=== PATIENT | male | born 1950 | race Two or more races ===

== ENCOUNTER → 2017-06-14 | Outpatient (CLI) | payer MEDICARE ==
[~2017-06-14] VITALS: Ht 152.4 cm; Wt 80.3 kg
[~2017-06-14] MED LIST: AMLO1CAP8 PO; AMLO5TAB2 PO; ASPI-252 PO; ASPI-482 PO; BUPIVACAINE 0.5% 50 ML VIAL. INJ ONE; CIPR500T PO; CLOP75TA PO; FINA5TAB PO; FINA5TAB4 PO; FLAX1CAP6 PO; IOHEXOL 300 MG/ML 10ML VIAL. INT ART ONE; LISI-334 PO; LISI10TA2 PO; LISI1TAB7 PO; METO-269 PO; NITR0.4T22 SL; SOTA80TA20 PO; SOTA80TA48 PO; TAMS0.4C2 PO; TAMS0.4C97 PO; WARF2.5T71 PO; WARF3TAB54 PO; methylPREDNISolone ACETATE 80 MG/ML VIAL. IM ONE
[2017-06-14 09:59] VITALS: BP 124/75
--- NOTE | 2017-06-14 11:28 | RAD ---
Fluoroscopically guided right hip joint injection, 06/14/2017: History: Osteoarthritis Under local anesthesia, aseptic conditions and fluoroscopic guidance a 22-gauge spinal needle was passed into the right hip joint via an anterior approach. A small amount of iodinated contrast material was injected to confirm intra-articular positioning following which 80 mg of Depo-Medrol mixed with 4 cc of 0.5% Sensorcaine was injected into the joint as requested. The needle was then removed and hemostasis obtained. A single fluoroscopic spot image was recorded. 0.8 minutes of fluoroscopy time is utilized. The patient tolerated the procedure well and left the department in good condition.
== END | disposition home or self-care (01) ==
LOC: RAD 09:29
PROVIDERS: ATTEND Nurse Practitioner Gerontology
DX: M16.11 Unilateral primary osteoarthritis, right hip (principal); G89.29 Other chronic pain
CPT/HCPCS: 20605; 77002

== ENCOUNTER → 2018-04-07 | Outpatient (CLI) | payer MEDICARE ==
[2018-04-07] MEDS: IOHEXOL 300 MG/ML 100ML VIAL. IV (10:30)
[2018-04-07] MEDS: IOHEXOL 240 MG/ML 50ML VIAL. PO (10:30)
== END | disposition home or self-care (01) ==
LOC: CT 09:45
DX: K57.90 Diverticulosis of intestine, part unspecified, without perforation or abscess without bleeding (principal); M16.11 Unilateral primary osteoarthritis, right hip; N40.0 Benign prostatic hyperplasia without lower urinary tract symptoms; I11.0 Hypertensive heart disease with heart failure; I50.9 Heart failure, unspecified; K21.9 Gastro-esophageal reflux disease without esophagitis; K57.30 Diverticulosis of large intestine without perforation or abscess without bleeding; K40.90 Unilateral inguinal hernia, without obstruction or gangrene, not specified as recurrent; Z87.891 Personal history of nicotine dependence
CPT/HCPCS: 74177; Q9966; Q9967

== ENCOUNTER → 2018-10-28 | Outpatient (CLI) | payer MEDICARE ==
[2017-06-14 09:59] VITALS: BP 124/75
[~2018-10-28] MED LIST changes: -AMLO5TAB2 PO; +AMLO5TAB7 PO; -BUPIVACAINE 0.5% 50 ML VIAL. INJ ONE; -IOHEXOL 300 MG/ML 10ML VIAL. INT ART ONE; +REGADENOSON 0.4 MG/5 ML DISP.SYRIN. IV ONE; -methylPREDNISolone ACETATE 80 MG/ML VIAL. IM ONE
--- NOTE | 2018-10-28 10:21 | CARD ---
MR#: [id number] Date of Study: 10/28/2018 Ordering Physician: CHRISTY BANKS, Referring Physician: CHRISTY BANKS Tech: Jennie Marino ISAAK APPROVED REPORT EXAM: Two-dimensional and M-mode echocardiogram with Doppler and color Doppler. Other Information Quality : AverageHR: 70bpm Rhythm : Other INDICATION Dyspnea 2D DIMENSIONS RVDd2.7 (2.9-3.5cm)Left Atrium(2D)3.9 (1.6-4.0cm) IVSd1.2 (0.7-1.1cm)Aortic Root(2D)3.6 (2.0-3.7cm) LVDd5.8 (3.9-5.9cm)LVOT Diameter2.5 (1.8-2.4cm) PWd1.2 (0.7-1.1cm)LVDs4.8 (2.5-4.0cm) FS (%) 16.7 %SV56.8 ml LVEF(%)34.5 (>50%) M-Mode DIMENSIONS Left Atrium(MM)4.13 (2.5-4.0cm)Aortic Root3.81 (2.2-3.7cm) Aortic Valve AoV Peak Al.104.8cm/sAoV VTI19.5cm AO Peak GR.4.4mmHgLVOT Peak Al.46.6cm/s AO Mean GR.3mmHgAVA (VMAX)2.19cm2 CONNOR (VTI)2.20cm2 Mitral Valve MV E Kiypnagy284.5cm/sMV DECEL [id number] MV A Rlqwmrlu20.4cm/sE/A Ratio4.2 Pulmonary Valve PV Peak Xuazufhz90.0cm/s Tricuspid Valve TR P. Atlfjdab659rp/sRAP RCGJHZMW3cwYc TR Peak Gr.56ggYkJPZF02eaGz LEFT VENTRICLE The left ventricle is normal size. There is mild concentric left ventricular hypertrophy. The left ve ntricular systolic function is moderately impaired. The Ejection Fraction is 30%. There is global hyp okinesis of the left ventricle. RIGHT VENTRICLE The right ventricle is normal size. There is normal right ventricular wall thickness. Systolic functi on is mildly to moderately reduced. ATRIA The left atrium is borderline dilated. The right atrium size is normal. The interatrial septum is int act with no evidence for an atrial septal defect or patent foramen ovale as noted on 2-D or Doppler i maging. AORTIC VALVE The aortic valve is calcified but opens well. The aortic valve is trileaflet. Doppler and Color Flow revealed no significant aortic regurgitation. There is no significant aortic valvular stenosis. MITRAL VALVE The mitral valve is normal in structure and function. There is no evidence of mitral valve prolapse. There is no mitral valve stenosis. Doppler and Color-flow revealed mild mitral regurgitation. TRICUSPID VALVE The tricuspid valve is normal in structure and function. Doppler and Color Flow revealed trace tricus pid regurgitation. The PA pressure was estimated at 27 mmHg. There is no tricuspid valve prolapse or vegetation. PULMONIC VALVE The pulmonary valve is normal in structure and function. Doppler and Color Flow revealed trace pulmon ic valvular regurgitation. There is no pulmonic valvular stenosis. GREAT VESSELS The aortic root is borderline enlarged. The ascending aorta is normal in size. The IVC is normal in s ize and collapses >50% with inspiration. PERICARDIAL EFFUSION There is no evidence of significant pericardial effusion. Critical Notification Critical Value: No <Conclusion> The left ventricular systolic function is moderately impaired. The Ejection Fraction is 30%. Mild mitral regurgitation. Trace tricuspid regurgitation. The PA pressure was estimated at 27 mmHg. There is no evidence of significant pericardial effusion. Signed by : Christy Banks, Electronically Approved : 10/28/2018 10:19:33
--- NOTE | 2018-10-28 12:43 | RAD ---
MR#: [id number] Date of Study: 10/28/2018 Ordering Physician: CHRISTY ZAMAN Referring Physician: HEATHER SCHERER Tech: RT Stephany Deleon) (N) APPROVED REPORT Test Type: Pharmacological Stress Nurse/Tech: Deepa Vincent R.N. Test Indications: dyspnea Cardiac History: htn, PPM Medications: See Electronic Medical Record Medical History: See Electronic Medical Record Resting ECG: Afib w/ v-paced beats Resting Heart Rate: 67 bpm Resting Blood Pressure: 155/93mmHg Pretest Chest Pain: No chest pain Nurse/Tech Notes irregular rhythm, lungs CTA Consent: The procedure was explained to the patient in lay terms. Informed consent was witnessed. Glen eout was entered into [email or web address]. History and Stress Test performed by RT Stephany Coppola) (N) Pharm. Details Pharmacologic stress testing was performed using 0.4mg per 5ml of regadenoson given intravenously ove r 7-10 seconds. Stress Symptoms slight SOB, h/a POST EXERCISE Reason for Termination: Infusion complete Max HR: 100 bpm Max Blood Pressure: 155/69mmHg Blood Pressure response to exercise: Normal blood pressure response during stress. Heart Rate response to exercise: wnl Chest Pain: No. Arrhythmia: Yes. not new- pt started in Afib ST Change: No. INTERPRETATION Stress EKG Conclusion: No stress induced EKG changes. Imaging Protocol IMAGE PROTOCOL: Rest Tc-99m/stress Tc-99m 1 day Rest: Stress: Viability: Radiopharm.Tc99m BanqpxwihLz83a Sestamibi Hdne96tYg 33mCi Duration 13min. 13min. Img Date 10/28/2018 10/28/2018 Inj-Img Tiix49rip. 60min. Rest Admin Site:IV - Right AntecubitalAdministrator:RT Anna CoppolaR)(N) Stress Admin Site: IV - Right AntecubitalAdministrator: TALISHA Gutierrez STRESS DATA End Diast. Vol.97.0mlLVEDV index BSA49.0ml End Syst. Vol.40.0mlLVESV index BSA20.0ml Myocardial Igdo978.0gEject. Cgynkabn43.0% Stress Scores Regional WT1.00Summed WT11.00 Regional WM0.00Summed WM4.00 LV Perfusion There is a basal to mid inferior wall FIXED defect consistent with prior infarct. No ischemia noted. LV Perf. Quant 17 Seg. SSS4.00 17 Seg. SRS1.00 17 Seg. SDS3.00 Stress Defect Extent (% LAD)0.00Rest Defect Extent (% LAD)0.00Rev. Defect Extent (% LAD)0.00 Stress Defect Extent (% LCX) 0.00Rest Defect Extent (% LCX)0.00Rev. Defect Extent (% LCX)0.00 Stress Defect Extent (% RCA)41.10Rest Defect Extent (% RCA)8.90Rev. Defect Extent (% RCA)31.10 Stress Defect Extent (% JONG)8.50Rest Defect Extent (% JONG)1.70Rev. Defect Extent (% JONG)6.10 Other Information Quality:Good Risk Assessment: Low Risk Conclusion 1. No evidence of stress induced EKG changes. 2. FIXED inferior wall defect. Probable infarct versus artifact. 3. Normal EF at > 55% 4. Low risk study Signed by : Enrique Cruz, Electronically Approved : 10/28/2018 12:41:35
== END | disposition home or self-care (01) ==
LOC: ECHO 07:49
PROVIDERS: ATTEND Internal Medicine Cardiovascular Disease
DX: I34.0 Nonrheumatic mitral (valve) insufficiency (principal); I51.7 Cardiomegaly
CPT/HCPCS: 78452; 93017; 93306; 96374; A9500; J2785

== ENCOUNTER → 2018-11-25 | Outpatient (CLI) | payer MEDICARE, OTHER ==
[~2018-11-25] VITALS: Ht 167.6 cm; Wt 87.1 kg
[2018-11-25] VITALS (8 sets, daily range): BP systolic 116–142; BP diastolic 77–91
[~2018-11-25] MED LIST changes: +AMLO5TAB10 PO; -AMLO5TAB7 PO; +HEPARIN for IV BOLUS 10,000 UNIT/10 ML VIAL. IART ONE; +HEPARIN for IV BOLUS 10,000 UNIT/10 ML VIAL. ONE; +IODIXANOL 320 MG/ML 100 ML VIAL. IART ONE; +IODIXANOL 320 MG/ML 100 ML VIAL. ONE; +IV 1/2 NORMAL SALINE 1,000 ML IV SCH; +LIDOCAINE 1% PF 2 ML VIAL. INJ ONE; +LIDOCAINE 1% PF 2 ML VIAL. ONE; +LOSA-73 PO; +MIDAZOLAM HCL/PF 2 MG/2 ML VIAL. IV ONE; +MIDAZOLAM HCL/PF 2 MG/2 ML VIAL. ONE; +NITROGLYCERIN 200 MCG/2 ML SYRINGE FOR CATH/VASC LAB. IART ONE; +NITROGLYCERIN 200 MCG/2 ML SYRINGE FOR CATH/VASC LAB. ONE; +NITROGLYCERIN SUBLINGUAL 0.4 MG BOTTLE OF 25. SL PRN; -REGADENOSON 0.4 MG/5 ML DISP.SYRIN. IV ONE; +VERAPAMIL 5 MG/2 ML VIAL. IART ONE; +VERAPAMIL 5 MG/2 ML VIAL. ONE; +WARF-78 PO; +WARF4TAB68 PO; +fentaNYL PF VIAL 100 MCG/2 ML VIAL IV ONE; +fentaNYL PF VIAL 100 MCG/2 ML VIAL ONE
[2018-11-25 07:13] LABS: HEMATOCRIT 42.1 % (39.0-53.0); HEMOGLOBIN 14.2 g/dL (13.0-17.5); RED BLOOD COUNT 4.66 x10^6/uL (4.30-5.70); RED CELL DISTRIBUTION WIDTH 13.2 % (11.5-14.5); WHITE BLOOD COUNT 9.3 x10^3/uL (4.0-11.0)
[2018-11-25 07:27] LABS: CREATININE 1.1 mg/dL (0.7-1.3); GFR 66.2; POTASSIUM 3.6 mmol/L (3.5-5.1)
--- NOTE | 2018-11-25 09:16 | PDOC ---
MODERATE SEDATION ASSESSMENT RISKS/ALTERNATIVES Risks/Alternatives Risks and alternatives of this type of sedation and procedure discussed with: RISK/ALTERNATIVES: Patient H & P ON CHART H & P H & P on chart and reviewed for co-morbid conditions and appropriate labs. H&P ON CHART: Yes STATUS PREG STATUS ASSESSED: N/A MEDS/ALLERGIES REVIEWED Meds/Allergies Reviewed Medications and Allergies including time and route of recently administered narcotics and sedatives. MEDS/ALLERGIES REVIEWED: Yes ASA RATING ASA RATING: II AIRWAY ASSESSMENT Airway Assessment Airway patency, oral function limitations, presence of caps, crowns, dentures, partials, and ability to extend neck assessed. AIRWAY ASSESSMENT: Yes MALLAMPATI SCORE MALLAMPATI SCORE: II PRE-SEDATION ASSESSMENT PRE-SEDATION ASSESSMENT: Yes CHRISTY ZAMAN MD Nov 25, 2018 09:16
--- NOTE | 2018-11-25 09:24 | CARD ---
MR#: [id number] Date of Study: 11/25/2018 Ordering Physician: CHRISTY ZAMAN, Referring Physician: CHRISTY ZAMAN Tech: SUZIE SHAH RTR APPROVED REPORT Technologist: SUZIE SHAH RTR Nurse: Maria M Rios RN Procedure(s) performed: Left heart catheterization, selective coronary angiography and left ventricul ography via right transradial approach Moderate sedation: 45 mins INDICATION The indication(s) include : Cardiomyopathy. [facility] Clinical Frailty Scale [facility] Clinical Frailty Scale: Mildly Frail Heart Failure Heart Failure: Yes If Yes, Newly Diagnosed: No If Yes, HF Type: Systolic If Yes, NYHA Class: Class II PROCEDURE NARRATIVE After explaining the risks, benefits and alternative options, informed consent was obtained from joan ent. Patient was brought to the cardiac Sql Data Architect and right wrist was prepped and draped in the usual fashion after confirming a positive modified Clint's test. Arterial access was obtained in the [facility] t radial artery and a 6 Swiss sheath was inserted. 6 Swiss José Luis catheter was used to perform sylwia ective angiography right coronary artery, LVEDP and transaortic gradient measurement and also left ve ntriculography. After initial unsuccessful attempts at engaging the left main coronary artery with t he 6 Swiss José Luis catheter and 5 Swiss JL 3.5 catheter, this was successfully engaged with a 5 Fren ch Jean Pierre catheter and selective angiography was performed. Patient tolerated the procedure well. Hem ostasis was achieved using TR band. There were no immediate complications. The following findings w ere noted. FINDINGS 1. Hemodynamics: Left ventricular end-diastolic pressure of 17 mmHg. No pullback gradient across th e aortic valve. 2. Left ventriculography: Moderate to severe left ventricle systolic dysfunction with ejection fract ion estimated at 25-30%. No significant mitral regurgitation seen. 3. Coronary angiography: a. The left main coronary artery arose from the left sinus of Valsalva, gave rise to the left anteri or descending and left circumflex arteries and did not show any significant stenosis. b. The left anterior descending artery showed 60-70% stenosis involving the midsegment of a small-ca liber diagonal branch. No other lesions were noted. c. The left circumflex artery did not show any significant stenosis. d. The right coronary artery was a dominant vessel arising from the right sinus of Valsalva that ross wed 90% stenosis in the proximal segment followed by 100% chronic total occlusion in the midsegment. The distal segment and PDA/PLV reconstitute via ofpp-gr-unozq collaterals. Conclusion 1. 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 Moderate to severe left ventricle systolic dysfunction with ejection fraction estimated 25-30% Recommendations Optimization of medical therapy for nonischemic cardiomyopathy Repeat 2-D echo in 3 months to evaluate the need for upgrading patient's pacemaker to AICD for primar y prevention of sudden cardiac . Signed by : Christy Zaman, Electronically Approved : 11/25/2018 09:23:19
--- NOTE | 2018-11-25 11:51 | NUR ---
Discharge Note: MARTIN SHEPARD Discharge instructions and discharge home medications reviewed with Patient and a copy given. All questions have been answered and understanding verbalized. The following instructions and handouts were given: education was given to patient regarding moderate sedation, radial site care, and TR band site care. Pt was also directed to continue home medications as directed. Pt verbalized understand. Discontinued lines and drains: peripheral line was discontinued with no complications. Catheter tip was intact. Patient discharged to home with self care via ambulation. Pt was accompanied by multiple family members.
== END | disposition home or self-care (01) ==
LOC: CCL 06:21
PROVIDERS: ATTEND Internal Medicine Cardiovascular Disease
DX: I25.10 Atherosclerotic heart disease of native coronary artery without angina pectoris (principal); I25.82 Chronic total occlusion of coronary artery; I49.5 Sick sinus syndrome; I42.0 Dilated cardiomyopathy; I48.2 Chronic atrial fibrillation; Z79.899 Other long term (current) drug therapy; I11.0 Hypertensive heart disease with heart failure; I50.20 Unspecified systolic (congestive) heart failure; N40.0 Benign prostatic hyperplasia without lower urinary tract symptoms; M16.11 Unilateral primary osteoarthritis, right hip; Z95.0 Presence of cardiac pacemaker; Z98.890 Other specified postprocedural states; Z82.49 Family history of ischemic heart disease and other diseases of the circulatory system; Z87.891 Personal history of nicotine dependence
CPT/HCPCS: 36415; 80048; 85027; 85610; 93458; 99152; 99153; C1769; C1892; J1644; J2250; J3010; J3490; Q9967

== ENCOUNTER → 2019-03-21 | Outpatient (CLI) | payer MEDICARE, OTHER ==
[2018-11-25 11:00] VITALS: BP 121/81
[~2019-03-21] MED LIST changes: -HEPARIN for IV BOLUS 10,000 UNIT/10 ML VIAL. IART ONE; -HEPARIN for IV BOLUS 10,000 UNIT/10 ML VIAL. ONE; -IODIXANOL 320 MG/ML 100 ML VIAL. IART ONE; -IODIXANOL 320 MG/ML 100 ML VIAL. ONE; -IV 1/2 NORMAL SALINE 1,000 ML IV SCH; -LIDOCAINE 1% PF 2 ML VIAL. INJ ONE; -LIDOCAINE 1% PF 2 ML VIAL. ONE; -MIDAZOLAM HCL/PF 2 MG/2 ML VIAL. IV ONE; -MIDAZOLAM HCL/PF 2 MG/2 ML VIAL. ONE; -NITROGLYCERIN 200 MCG/2 ML SYRINGE FOR CATH/VASC LAB. IART ONE; -NITROGLYCERIN 200 MCG/2 ML SYRINGE FOR CATH/VASC LAB. ONE; -NITROGLYCERIN SUBLINGUAL 0.4 MG BOTTLE OF 25. SL PRN; -VERAPAMIL 5 MG/2 ML VIAL. IART ONE; -VERAPAMIL 5 MG/2 ML VIAL. ONE; -fentaNYL PF VIAL 100 MCG/2 ML VIAL IV ONE; -fentaNYL PF VIAL 100 MCG/2 ML VIAL ONE
--- NOTE | 2019-03-21 09:42 | CARD ---
MR#: [id number] Date of Study: 03/21/2019 Ordering Physician: CHRISTY BANKS, Referring Physician: CHRISTY BANKS Tech: Jennie Marino RDCS APPROVED REPORT EXAM: Two-dimensional and M-mode echocardiogram with Doppler and color Doppler. Other Information Quality : AverageHR: 107bpm Rhythm : TachycardiaTechnically limited study due to heart rate. INDICATION Congestive Heart Failure 2D DIMENSIONS RVDd3.0 (2.9-3.5cm)Left Atrium(2D)4.0 (1.6-4.0cm) IVSd1.0 (0.7-1.1cm)Aortic Root(2D)3.5 (2.0-3.7cm) LVDd5.7 (3.9-5.9cm)LVOT Diameter2.5 (1.8-2.4cm) PWd1.0 (0.7-1.1cm)LVDs4.4 (2.5-4.0cm) FS (%) 22.7 %SV72.2 ml LVEF(%)40.0 (>50%) M-Mode DIMENSIONS Left Atrium(MM)4.10 (2.5-4.0cm)Aortic Root3.44 (2.2-3.7cm) Aortic Valve AoV Peak La.128.2cm/sAoV VTI22.3cm AO Peak GR.6.6mmHgLVOT Peak Al.106.4cm/s AO Mean GR.4mmHgAVA (VMAX)3.94cm2 CONNOR (VTI)3.90cm2 Mitral Valve MV E Jmqxoldl159.2cm/sMV DECEL THBJ927hi MV A Qccgcwnb59.8cm/sE/A Ratio3.2 Pulmonary Valve PV Peak Mfbttlcg768.8cm/s Tricuspid Valve TR P. Wummwprm622av/sRAP AURCTOPD3gbZf TR Peak Gr.24fbPuRPDF08wrXb LEFT VENTRICLE The left ventricle is normal size. There is normal left ventricular wall thickness. Left ventricle sy stolic function is moderately impaired. The Ejection Fraction is 35-40%. There is global hypokinesis of the left ventricle. RIGHT VENTRICLE The right ventricle is normal size. There is normal right ventricular wall thickness. The right ventr icular systolic function is normal. ATRIA The left atrium is borderline dilated. The right atrium size is normal. The interatrial septum is int act with no evidence for an atrial septal defect or patent foramen ovale as noted on 2-D or Doppler i maging. AORTIC VALVE The aortic valve is normal in structure and function. The aortic valve is trileaflet. Doppler and Col or Flow revealed no significant aortic regurgitation. There is no significant aortic valvular stenosi s. MITRAL VALVE The mitral valve is thickened but opens well. There is no evidence of mitral valve prolapse. There is no mitral valve stenosis. Doppler and Color-flow revealed mild mitral regurgitation. TRICUSPID VALVE The tricuspid valve is normal in structure and function. Doppler and Color Flow revealed trace tricus pid regurgitation. The PA pressure was estimated at 26 mmHg. There is no tricuspid valve prolapse or vegetation. There is no tricuspid valve stenosis. PULMONIC VALVE The pulmonary valve is normal in structure and function. Doppler and Color Flow revealed trace pulmon ic valvular regurgitation. There is no pulmonic valvular stenosis. GREAT VESSELS The aortic root is normal in size. The ascending aorta is normal in size. The IVC is normal in size a nd collapses >50% with inspiration. PERICARDIAL EFFUSION There is no evidence of significant pericardial effusion. Critical Notification Critical Value: No <Conclusion> Left ventricle systolic function is moderately impaired. The Ejection Fraction is 35-40%. Mild mitral regurgitation. Trace tricuspid regurgitation. The PA pressure was estimated at 26 mmHg. There is no evidence of significant pericardial effusion. Signed by : Christy Banks, Electronically Approved : 03/21/2019 09:42:16
== END | disposition home or self-care (01) ==
LOC: ECHO 08:52
PROVIDERS: ATTEND Internal Medicine Cardiovascular Disease
DX: I34.0 Nonrheumatic mitral (valve) insufficiency (principal); I11.0 Hypertensive heart disease with heart failure; I50.22 Chronic systolic (congestive) heart failure
CPT/HCPCS: 93306

== ENCOUNTER → 2019-04-10 | Outpatient (CLI) | payer MEDICARE, OTHER ==
[2018-11-25 11:00] VITALS: BP 121/81
--- NOTE | 2019-04-10 16:33 | RAD ---
Renal ultrasound 04/10/2019 CLINICAL HISTORY: Concern for renal cysts. TECHNIQUE: A real-time ultrasound examination of both kidneys and the urinary bladder was performed. Multiple images were obtained. FINDINGS: Both kidneys are within normal limits in size and echogenicity. The right kidney measures 10.7 cm in length. The left kidney measures 11.6 cm in length. No focal abnormality of either kidney is seen. No renal calculus is noted. There is no evidence of hydronephrosis. The urinary bladder is contracted. The prostate gland is enlarged. It measures 5.7 x 5.2 x 4.6 cm in longitudinal, transverse, and AP dimensions. IMPRESSION: The prostate gland is enlarged likely related to BPH. Otherwise negative study. Electronically signed by: Polo Roy MD (04/10/2019 4:30 PM) [facility]
== END | disposition home or self-care (01) ==
LOC: US 15:37
PROVIDERS: ATTEND Family Medicine
DX: N40.0 Benign prostatic hyperplasia without lower urinary tract symptoms (principal)
CPT/HCPCS: 76770

== ENCOUNTER 2019-07-07 10:30 | Observation (INO) | payer MEDICARE, MEDICAID ==
[~2019-07-07] VITALS: Ht 170.2 cm; Wt 85.3 kg
[~2019-07-07 10:30] MED LIST changes: -AMLO1CAP8 PO; +AMLO1CAP9 PO; +HYDROmorphone 2 MG/ML VIAL IV PRN; +IV RINGERS,LACTATED 1000ML 1,000 ML IV SCH; +LIDOCAINE 1% PF 2 ML VIAL. ID PRN; +LISI1TAB20 PO; -LISI1TAB7 PO; +MORPHINE SULFATE 2 MG/ML VIAL. IV PRN; +ONDANSETRON PF 4 MG/2 ML VIAL. IV PRN; +PROCHLORPERAZINE 10 MG/2 ML VIAL. IV PRN; +fentaNYL PF VIAL 100 MCG/2 ML VIAL IV PRN
[2019-07-07 11:34] VITALS: BP 140/83
[2019-07-07 11:51] LABS: CALCIUM 8.5 mg/dL (8.5-10.1); GFR 73.9; POTASSIUM 4.7 mmol/L (3.5-5.1)
--- NOTE | 2019-07-07 11:51 | EKG ---
[facility] [address] [place] [address] Test Date: 2019-07-07 Test Time: 11:44:17 Pat Name: JV SHEPARD Department: Room: 205 1 Gender: M Grinding Supervisor: STUART : 1950 Requested By: CHRISTY ZAMAN Order Number: [id number] Reading MD: Enrique Cruz MD Measurements Intervals [place] Rate: 70 P: PA: QRS: 30 QRSD: 104 T: 34 QT: 392 QTc: 426 Interpretive Statements ATRIAL FIBRILLATION WITH CONTROLLED VENTRICULAR RESPONSE NON-SPECIFIC ST/T CHANGES Electronically Signed On 07-18-2019 9:35:29 CDT by Enrique Cruz MD
[2019-07-07] MEDS ORDERED: PANT40TA77 PO (11:54)
[2019-07-07] MEDS ORDERED: FINA5TAB4 PO (11:54)
[2019-07-07] MEDS ORDERED: HYDR-2761 PO (11:54)
[2019-07-07 11:55] LABS: HEMATOCRIT 30.2 % (39.0-53.0); RED BLOOD COUNT 3.36 x10^6/uL (4.30-5.70); WHITE BLOOD COUNT 9.2 x10^3/uL (4.0-11.0)
[2019-07-07] MEDS ORDERED: BACITRACIN 50,000 UNIT in IV NORMAL SALINE 250ML 250 ML IRR ONE (12:00)
[2019-07-07 12:02] LABS: PROTHROMBIN TIME PATIENT 13.4 SEC (11.7-14.0)
[2019-07-07] MEDS ORDERED: LIDOCAINE 2%/EPI 1:100,000 20 ML VIAL. ONE (12:40)
[2019-07-07] MEDS ORDERED: LIDOCAINE 2%/EPI 1:100,000 20 ML VIAL. IJ ONE (13:00)
--- NOTE | 2019-07-07 13:55 | CARD ---
MR#: [id number] Date of Study: 07/07/2019 Ordering Physician: CHRISTY ZAMAN, Referring Physician: Margot SCHERER: Mariluz Forbes APPROVED REPORT EXAM Successful upgrade of permanent pacemaker for [employer] dual-chamber automatic implantable cardiover ter defibrillator fl time: 4.1 mins dose: 11 gy/cm2 INDICATIONS Primary prevention of sudden cardiac in a patient with chronic systolic heart failure PROCEDURE After explaining the risks, benefits, and alternative options, informed consent was obtained from the patient. The patient was brought to the cardiac catheterization lab and the left chest and shoulder were prepp ed and draped in the usual fashion. 30 mL of 2% lidocaine was infiltrated into the skin and subcutaneous tissues for local anesthesia. An incision was made over the left infraclavicular fossa and using blunt dissection and cautery the pac emaker pocket was opened, the capsule exposed and opened and the previously placed pacemaker generato r removed. The leads were detached from the generator. The ventricular lead was capped. The atrial le ad was interrogated and found to be functioning well. Venous access was obtained in the left subclavian vein and 7 [place] sheath inserted. A [employer] bip olar active fixation right ventricular lead model Durata 7120Q, serial number [id number] was advanced under fluoroscopy guidance and the tip was positioned in the right ventricle apex. This lead and the previously placed atrial lead were then attached to a [employer] dual-chamber AICD generator model Ana Bhakta DR 2357-40Q serial #[id number]. This was placed in the pocket that was subsequently closed i n 3 layers. Hemostasis was secured. The right ventricle lead showed sensing amplitude of 6.6 mV, impedance of 590 ohms and a threshold of 0.5 V. The right atrial lead showed a sensing amplitude for fibrillatory waves of 1.8 mV and impedan ce of 450 ohms. Thresholds were not performed due to underlying atrial fibrillation. Defibrillation t hresholds were also not measured since patient has been off Coumadin for the purpose of procedure. He tolerated the procedure well. There were no immediate complications. CONCLUSION Successful upgrade of [employer] permanent pacemaker to dual-chamber automatic implantable cardiovert er defibrillator for primary prevention of sudden cardiac in a patient with chronic systolic he art failure. RECOMMENDATIONS Resume anticoagulation and check defibrillation thresholds as an outpatient in 2-4 weeks. Signed by : Christy Zaman, Electronically Approved : 07/07/2019 13:55:16
[2019-07-07] MEDS ORDERED: NO ANTICOAGULANT THERAPY. MC PRN (14:00)
--- NOTE | 2019-07-07 14:32 | RAD ---
Examination: PORTABLE CHEST 1V History: Postpacemaker Comparison/Correlation: 10/10/2018 AP view of the chest Findings: Portable upright frontal view of the chest was obtained. Triple lead left-sided is present. Leads are intact. No pneumothorax. Heart size is enlarged. No definite or significant pleural effusion. Limited pulmonary inflation noted. Borderline pulmonary vasculature likely is at least in part artifactual due to limited pulmonary inflation. Impression: Leads appear to be intact and in place on the basis of frontal view provided. No pneumothorax. Electronically signed by: Kyler John MD (07/07/2019 2:29 PM) [facility]
[2019-07-07 15:00] VITALS: BP 145/75
[2019-07-07] MEDS ORDERED: ASPIRIN ENTERIC COATED 81 MG TABLET.DR. PO SCH ×2 (16:00→16:15)
[2019-07-07] MEDS ORDERED: HYDROcodone/APAP 5/325MG 1 TAB TABLET PO PRN (16:00)
[2019-07-07] MEDS ORDERED: WARFARIN 4 MG TABLET. PO SCH (16:30)
[2019-07-07 19:30] VITALS: BP 133/70
[2019-07-07] MEDS: TAMSULOSIN 0.4 MG CAP.ER.24H. PO SCH (20:38)
[2019-07-07] MEDS ORDERED: amLODIPine BESYLATE 5 MG TABLET PO SCH (21:00)
[2019-07-07 23:41] VITALS: BP 116/67
[2019-07-08 03:45] VITALS: BP 119/74
[2019-07-08 04:41] LABS: PROTHROMBIN TIME PATIENT 13.8 SEC (11.7-14.0)
[2019-07-08 07:00] VITALS: BP 112/81
[2019-07-08] MEDS ORDERED: ASPIRIN ENTERIC COATED 81 MG TABLET.DR. PO SCH (08:00)
[2019-07-08] MEDS: TAMSULOSIN 0.4 MG CAP.ER.24H. PO SCH (08:05)
[2019-07-08] MEDS ORDERED: LOSARTAN POTASSIUM 50 MG TABLET. PO SCH (09:00)
[2019-07-08] MEDS ORDERED: amLODIPine BESYLATE 5 MG TABLET PO SCH (09:00)
[2019-07-08] MEDS ORDERED: FINASTERIDE 5 MG TABLET. PO SCH (09:00)
--- NOTE | 2019-07-08 10:13 | RAD ---
PA and lateral chest radiographs 07/08/2019 CLINICAL HISTORY: One day post pacemaker placement. PA and lateral digital radiographs of chest were obtained. Comparison study is dated 07/07/2019. A left-sided pacemaker is unchanged. The cardiac silhouette is mildly enlarged. The thoracic aorta is tortuous. Atherosclerotic calcification thoracic aorta is seen. No acute pulmonary infiltrate is noted. No pneumothorax or pleural effusion is seen. The osseous structures are unchanged. IMPRESSION: No acute abnormality is seen Electronically signed by: Polo Roy MD (07/08/2019 10:10 AM) [facility]
[2019-07-08 11:00] VITALS: BP 98/61
[2019-07-08] MEDS ORDERED: WARF-78 PO (12:11)
[2019-07-08] MEDS ORDERED: WARF4TAB68 PO (12:12)
--- NOTE | 2019-07-08 13:25 | NUR ---
discharge note Pt and Pt daughter in room for discharge instructions. IV discontinued by this rn without complications. all paperwork signed and given to family. tele pack taken off. pt was wheelchaied to private vehicle by [facility].
[2019-07-08] MEDS ORDERED: WARFARIN 5 MG TABLET. PO SCH (16:00)
[2019-07-09] MEDS ORDERED: WARFARIN 4 MG TABLET. PO SCH (16:00)
--- NOTE | 2019-07-10 13:49 | PDOC3 ---
Discharge Summary Visit Information Date of Admission: Jul 07, 2019 Date of Discharge: Jul 08, 2019 Admitting Diagnosis Comment: Cardio myopathy. Final Diagnosis Cardiomyopathy Brief Hospital Course Allergies Allergies Coded Allergies Type Severity Reaction Last Updated Verified No Known Drug Allergies 05/26/17 No Brief Hospital Course The patient is a 68-year-old male with a history of a cardiomyopathy. He was admitted and underwent an upgrade of his permanent pacemaker to a [employer] AICD for the primary prevention of cardiac sudden due to his severe cardiomyopathy. Procedure was performed without complications. Patient was stable overnight. Interrogation of his device the following day showed normal function. Chest x-ray showed no acute changes. The patient will be discharged to home. He will continue on present home medications. We'll have a wound follow-up in one to 2 weeks. Assessment Assessment Successful upgrade of a permanent pacemaker to a dual-chamber AICD in the setting of a severe cardiomyopathy. Discharge Information Condition at Discharge: Stable Follow Up: Weeks (wound check in one to 2 weeks.) Disposition/Orders: D/C to Home Scheduled Amlodipine Besylate (Amlodipine Besylate) 5 Mg Tablet, 5 MG PO DAILY for htn, (Reported) Entered as Reported by: CRISTHIAN SOW on 11/25/18 0812 Last Taken: Unknown Dose on 07/06/19 Last Action: Continued on 07/07/19 1603 by GUILLERMO SIDHU RN Aspirin (Aspir 81) 81 Mg Tablet.dr, 1 TAB PO 1X, #30 Ref 5 (Reported) Entered as Reported by: ARTEMIO FRITZ on 05/26/17 2145 Last Taken: Unknown Dose on 06/30/19 Last Action: Continued on 07/07/19 1603 by GUILLERMO SIDHU RN Finasteride (Finasteride) 5 Mg Tablet, 1 TAB PO DAILY for urinary retention, #30 Ref 11 (Reported) Entered as Reported by: BEBO SPANGLER on 07/07/19 1154 Last Taken: Unknown Dose on 07/06/19 Last Action: Continued on 07/07/19 1603 by GUILLERMO SIDHU RN Losartan Potassium (Losartan Potassium) 50 Mg Tablet, 50 MG PO DAILY for HY PERTENSION, (Reported) Entered as Reported by: CRISTHIAN SOW on 11/25/18 0812 Last Taken: Unknown Dose on 07/07/19 Last Action: Continued on 07/07/19 1603 by GUILLERMO SIDHU, RN Pantoprazole Sodium (Pantoprazole Sodium ) 40 Mg Tablet.dr, 40 MG PO DAILYAC for GERD, (Reported) Entered as Reported by: BEBO SPANGLER on 07/07/191153 Last Taken: Unknown Dose on 07/06/19 Last Action: New Order on 07/07/191153 by BEBO SPANGLER Tamsulosin Hcl (Flomax) 0.4 Mg Cap.er.24h, 0.4 MG PO BID, (Reported) Entered as Reported by: ARTEMIO FRITZ on 05/26/172140 Last Taken: Unknown Dose on 07/06/19 Last Action: Continued on 07/07/191602 by GUILLERMO SIDHU RN Warfarin Sodium (Coumadin) 5 Mg Tablet, 5 MG PO 4X/WEEK for bl. thinner, #30 (Reported) take , WED Entered as Reported by: CRISTHIAN SOW on 11/25/18 0812 Last Taken: Unknown Dose on 07/01/19 Last Action: Last Taken Edited on 07/07/191153 by BEBO SPANGLER Warfarin Sodium (Coumadin) 4 Mg Tablet, 4 MG PO 4X WEEK M,W,F,RIBEIRO for AFIB BLOOD THINNER, (Reported) Entered as Reported by: GINA STALEY on 07/08/19 1212 Scheduled PRN Hydrocodone Bit/Acetaminophen (Hydrocodone-Apap 5-325 ) 1 Tab Tablet, 1 TAB PO PRN Q6HRS PRN for PAIN, Ref 0 (Reported) Entered as Reported by: BEBO SPANGLER on 07/07/191153 Last Taken: Unknown Dose on 07/06/19 Last Action: Continued on 07/07/191602 by GUILLERMO SIDHU, RN Nitroglycerin (NITROGLYCERIN SubLingual) 0.4 Mg Tab.subl, 0.4 MG SL PRN Q5MIN PRN for CHEST PAIN, (Reported) Entered as Reported by: ARTEMIO FRITZ on 05/26/172144 Last Taken: UNKNOWN on Unknown Date & Time Last Action: Last Taken Edited on 07/07/191153 by BEBO SPANGLER Discontinued Medications Warfarin Sodium (Coumadin) 4 Mg Tablet, 1 TAB PO 3X/WEEK for bl. thinner, #30 (Reported) takes M,W,F, Ribeiro Entered as Reported by: CRISTHIAN SOW on 11/25/18 0812 Last Taken: Unknown Dose on 07/02/19 Last Action: Continued on 07/07/19 1603 by GUILLERMO SIDHU RN Warfarin Sodium (Coumadin) 5 Mg Tablet, 5 MG PO 3X/WEEK for AFIB BLOOD THINNER, #30 (Reported) Entered as Reported by: GINA STALEY on 07/08/19 1211 FIONA REYNA MD Jul 10, 2019 13:49
== END 2019-07-08 12:45 | disposition home or self-care (01) ==
LOC: SURG 10:30 → 2 NORTH 11:00
PROVIDERS: ADMIT Internal Medicine Cardiovascular Disease; ATTEND Internal Medicine Cardiovascular Disease
DX: I42.9 Cardiomyopathy, unspecified (principal); I48.21 Permanent atrial fibrillation; I25.10 Atherosclerotic heart disease of native coronary artery without angina pectoris; I50.22 Chronic systolic (congestive) heart failure; I49.5 Sick sinus syndrome
CPT/HCPCS: 33249; 36415; 71045; 71046; 80048; 85027; 85610; 93005; 96365; 96366; 96368; C1721; C1895; G0378; G0379; J0696; J3490; J7050; J7030

== ENCOUNTER 2019-07-14 11:52 | Inpatient (IN) | payer MEDICARE, MEDICAID ==
[~2019-07-14] VITALS: Ht 175.3 cm; Wt 86.2 kg
[~2019-07-14 11:52] MED LIST changes: +HYDR-2761 PO; -HYDROmorphone 2 MG/ML VIAL IV PRN; -IV RINGERS,LACTATED 1000ML 1,000 ML IV SCH; -LIDOCAINE 1% PF 2 ML VIAL. ID PRN; -MORPHINE SULFATE 2 MG/ML VIAL. IV PRN; -ONDANSETRON PF 4 MG/2 ML VIAL. IV PRN; +PANT40TA77 PO; -PROCHLORPERAZINE 10 MG/2 ML VIAL. IV PRN; -fentaNYL PF VIAL 100 MCG/2 ML VIAL IV PRN
--- NOTE | 2019-07-14 13:16 | PHYS DOC ---
Past Medical History Past Medical History: Hypertension Additional Past Medical Histor: BPH, (PARISH SAUCEDA APRN) Past Surgical History: Pacemaker Additional Past Surgical Histo: hernia surgery (PARISH SAUCEDA APRN) Alcohol Use: None Drug Use: None (PARISH SAUCEDA APRN) Attending Signature I have participated in the care of this patient and I have reviewed and agree with all pertinent clinical information above including history, exam, and recommendations. (MINDA BEAN MD) Adult General Chief Complaint Chief Complaint: UPPER EXTREMITY SWELLING HPI HPI Patient is a 68 year old male that presents with bilateral leg swelling, left arm swelling, and chest pain that started yesterday. The patient states he had a ICD put in a week ago. He reports a pain level 5 out of 10 in severity and thr obbing. (PARISH SAUCEDA APRN) Review of Systems Review of Systems Constitutional: Denies fever or chills [] Eyes: Denies change in visual acuity, redness, or eye pain [] HENT: Denies nasal congestion or sore throat [] Respiratory: Denies cough or shortness of breath [] Cardiovascular: No additional information not addressed in HPI [] GI: Denies abdominal pain, nausea, vomiting, bloody stools or diarrhea [] : Denies dysuria or hematuria [] Musculoskeletal: Denies back pain or joint pain [] Integument: Report bilateral leg swelling, and left forearm swelling. Neurologic: Denies headache, focal weakness or sensory changes [] Endocrine: Denies polyuria or polydipsia [] Complete systems were reviewed and found to be within normal limits, except as documented in this note. (PARISH SAUCEDA APRN) Current Medications Current Medications Current Medications Medications (Trade) Dose Ordered Sig/Trinity Start Time Stop Time Status Last Admin Dose Admin Furosemide (Lasix) 20 mg 1X STAT 07/14/19 15:20 07/14/19 15:23 DC 07/14/19 18:08 20 MG Info (CONTRAST GIVEN -- Rx MONITORING) 1 each PRN DAILY PRN 07/14/19 15:00 07/16/19 14:59 Iohexol (Omnipaque 350 Mg/ml) 100 ml 1X ONCE 07/14/19 15:00 07/14/19 15:01 DC (MINDA BEAN MD) Allergies Allergies Allergies Coded Allergies Type Severity Reaction Last Updated Verified No Known Drug Allergies 05/26/17 No (MINDA BEAN MD) Physical Exam Physical Exam Constitutional: Well developed, well nourished, no acute distress, non-toxic appearance. [] HENT: Normocephalic, atraumatic, bilateral external ears normal, oropharynx moist, no oral exudates, nose normal. [] Eyes: PERRLA, EOMI, conjunctiva normal, no discharge. [] Neck: Normal range of motion, no tenderness, supple, no stridor. [] Cardiovascular:Heart rate regular rhythm, no murmur [] Lungs & Thorax: Bilateral breath sounds clear to auscultation [] Abdomen: Bowel sounds normal, soft, no tenderness, no masses, no pulsatile masses. [] Skin: Warm, dry, no erythema, no rash. [] Back: No tenderness, no CVA tenderness. [] Extremities: pitting edema bilaterally to the lower extremity, left forearm swelling, and bruising. Neurologic: Alert and oriented X 3, normal motor function, normal sensory function, no focal deficits noted. [] Psychologic: Affect normal, judgement normal, mood normal. [] (PARISH SAUCEDA APRN) Current Patient Data Vital Signs Vital Signs Date Time Temp Pulse Resp B/P (MAP) Pulse Ox O2 Delivery O2 Flow Rate FiO2 07/14/19 15:30 73 18 133/81 (98) 98 Room Air 07/14/19 13:00 98.0 98.0 (MNIDA BEAN MD) Lab Values Laboratory Tests Test 07/14/19 13:50 07/14/19 14:00 Prothrombin Time 14.7 SEC (11.7-14.0) H Prothrombin Time INR 1.2 (0.8-1.1) H Activated Partial Thromboplast Time 24 SEC (24-38) White Blood Count 10.2 x10^3/uL (4.0-11.0) Red Blood Count 3.33 x10^6/uL (4.30-5.70) L Hemoglobin 9.8 g/dL (13.0-17.5) L Hematocrit 29.5 % (39.0-53.0) L Mean Corpuscular Volume 89 fL (79-100) Mean Corpuscular Hemoglobin 30 pg (25-35) Mean Corpuscular Hemoglobin Concent 33 g/dL (31-37) Red Cell Distribution Width 16.3 % (11.5-14.5) H Platelet Count 205 x10^3/uL (140-400) Neutrophils (%) (Auto) 80 % (31-73) H Lymphocytes (%) (Auto) 13 % (24-48) L Monocytes (%) (Auto) 7 % (0-9) Eosinophils (%) (Auto) 0 % (0-3) Basophils (%) (Auto) 0 % (0-3) Neutrophils # (Auto) 8.2 x10^3/uL (1.8-7.7) H Lymphocytes # (Auto) 1.3 x10^3/uL (1.0-4.8) Monocytes # (Auto) 0.7 x10^3/uL (0.0-1.1) Eosinophils # (Auto) 0.0 x10^3/uL (0.0-0.7) Basophils # (Auto) 0.0 x10^3/uL (0.0-0.2) Segmented Neutrophils % 67 % (35-66) H Band Neutrophils % 8 % (0-9) Lymphocytes % 11 % (24-48) L Monocytes % 10 % (0-10) Metamyelocytes % 2 % (0-0) H Myelocytes % 2 % (0-0) H Platelet Estimate Adequate (ADEQUATE) Polychromasia Mod Basophilic Stippling Present Anisocytosis Slight Ovalocytes Few D-Dimer (Cristel) 0.58 ug/mlFEU (0.00-0.50) H Sodium Level 145 mmol/L (136-145) Potassium Level 4.5 mmol/L (3.5-5.1) Chloride Level 107 mmol/L (98-107) Carbon Dioxide Level 29 mmol/L (21-32) Anion Gap 9 (6-14) Blood Urea Nitrogen 25 mg/dL (8-26) Creatinine 1.0 mg/dL (0.7-1.3) Estimated GFR (Cockcroft-Gault) 73.9 BUN/Creatinine Ratio 25 (6-20) H Glucose Level 107 mg/dL (70-99) H Calcium Level 8.6 mg/dL (8.5-10.1) Magnesium Level 2.0 mg/dL (1.8-2.4) Total Bilirubin 0.4 mg/dL (0.2-1.0) Aspartate Amino Transferase (AST) 17 U/L (15-37) Alanine Aminotransferase (ALT) 38 U/L (16-63) Alkaline Phosphatase 64 U/L (46-116) Creatine Kinase 36 U/L (39-308) L Creatine Kinase MB (Mass) 1.8 ng/mL (0.0-3.6) Creatine Kinase MB Relative Index 5.0 % (0-4) H Troponin I Quantitative < 0.017 ng/mL (0.000-0.055) SR-Xqc-N-Type Natriuretic Peptide 2510 pg/mL (0-124) H Total Protein 5.9 g/dL (6.4-8.2) L Albumin 3.1 g/dL (3.4-5.0) L Albumin/Globulin Ratio 1.1 (1.0-1.7) Laboratory Tests 07/14/19 14:00 Laboratory Tests 07/14/19 14:00 (MINDA BEAN MD) Lab Values Laboratory Tests Test 07/14/19 13:50 07/14/19 14:00 Prothrombin Time 14.7 SEC (11.7-14.0) H Prothrombin Time INR 1.2 (0.8-1.1) H Activated Partial Thromboplast Time 24 SEC (24-38) White Blood Count 10.2 x10^3/uL (4.0-11.0) Red Blood Count 3.33 x10^6/uL (4.30-5.70) L Hemoglobin 9.8 g/dL (13.0-17.5) L Hematocrit 29.5 % (39.0-53.0) L Mean Corpuscular Volume 89 fL (79-100) Mean Corpuscular Hemoglobin 30 pg (25-35) Mean Corpuscular Hemoglobin Concent 33 g/dL (31-37) Red Cell Distribution Width 16.3 % (11.5-14.5) H Platelet Count 205 x10^3/uL (140-400) Neutrophils (%) (Auto) 80 % (31-73) H Lymphocytes (%) (Auto) 13 % (24-48) L Monocytes (%) (Auto) 7 % (0-9) Eosinophils (%) (Auto) 0 % (0-3) Basophils (%) (Auto) 0 % (0-3) Neutrophils # (Auto) 8.2 x10^3/uL (1.8-7.7) H Lymphocytes # (Auto) 1.3 x10^3/uL (1.0-4.8) Monocytes # (Auto) 0.7 x10^3/uL (0.0-1.1) Eosinophils # (Auto) 0.0 x10^3/uL (0.0-0.7) Basophils # (Auto) 0.0 x10^3/uL (0.0-0.2) Segmented Neutrophils % 67 % (35-66) H Band Neutrophils % 8 % (0-9) Lymphocytes % 11 % (24-48) L Monocytes % 10 % (0-10) Metamyelocytes % 2 % (0-0) H Myelocytes % 2 % (0-0) H Platelet Estimate Adequate (ADEQUATE) Polychromasia Mod Basophilic Stippling Present Anisocytosis Slight Ovalocytes Few D-Dimer (Cristel) 0.58 ug/mlFEU (0.00-0.50) H Sodium Level 145 mmol/L (136-145) Potassium Level 4.5 mmol/L (3.5-5.1) Chloride Level 107 mmol/L (98-107) Carbon Dioxide Level 29 mmol/L (21-32) Anion Gap 9 (6-14) Blood Urea Nitrogen 25 mg/dL (8-26) Creatinine 1.0 mg/dL (0.7-1.3) Estimated GFR (Cockcroft-Gault) 73.9 BUN/Creatinine Ratio 25 (6-20) H Glucose Level 107 mg/dL (70-99) H Calcium Level 8.6 mg/dL (8.5-10.1) Magnesium Level 2.0 mg/dL (1.8-2.4) Total Bilirubin 0.4 mg/dL (0.2-1.0) Aspartate Amino Transferase (AST) 17 U/L (15-37) Alanine Aminotransferase (ALT) 38 U/L (16-63) Alkaline Phosphatase 64 U/L (46-116) Creatine Kinase 36 U/L (39-308) L Creatine Kinase MB (Mass) 1.8 ng/mL (0.0-3.6) Creatine Kinase MB Relative Index 5.0 % (0-4) H Troponin I Quantitative < 0.017 ng/mL (0.000-0.055) KW-Lfa-S-Type Natriuretic Peptide 2510 pg/mL (0-124) H Total Protein 5.9 g/dL (6.4-8.2) L Albumin 3.1 g/dL (3.4-5.0) L Albumin/Globulin Ratio 1.1 (1.0-1.7) Laboratory Tests 07/14/19 14:00 Laboratory Tests 07/14/19 14:00 (PARISH SAUCEDA APRN) EKG EKG EKG interpreted by Dr. Bean Sinus with rate of 67 with pvc's and leftward axis. NO STEMI.[] (PARISH SAUCEDA APRN) Radiology/Procedures Radiology/[place] [address] IMAGING REPORT Signed PATIENT: JENI SHEPARDUNT: [id number] : 1950 LOCATION: ER AGE: 68 SEX: M EXAM STATUS: REG ER ORD. PHYSICIAN: PARISH SAUCEDA APRN REASON: chest pain PROCEDURE: CHEST PA & LATERAL Chest radiograph 07/14/2019 12:00 AM INDICATION: Chest pain COMPARISON: 07/08/2019 TECHNIQUE: Frontal and lateral views of the chest are provided. FINDINGS: The cardiomediastinal silhouette is within normal limits. Left chest wall cardiac device is identified with leads projecting over the right atrium, right ventricle and coronary sinus in similar position the prior examination. There are no pleural effusions. There is no pulmonary vascular congestion. There is no pneumothorax. The lungs are clear. No significant osseous abnormality is identified. IMPRESSION: No acute cardiopulmonary process. Electronically signed by: Vinh Carver MD (07/14/2019 2:06 PM) [id number] DICTATED and SIGNED BY: VINH CARVER MD DATE: 07/14/19 1406 [][address] [id number] IMAGING REPORT Signed PATIENT: JENI SHEPARDUNT: [id number] : 1950 LOCATION: ER AGE: 68 SEX: M EXAM STATUS: REG ER ORD. PHYSICIAN: PARISH SAUCEDA APRN REASON: swelling PROCEDURE: VENOUS UPPER EXTREMITY LEFT EXAM: Left upper extremity venous Doppler sonogram. HISTORY: Pain and swelling. TECHNIQUE: Block scale and color Doppler sonographic evaluation of the left upper extremity veins with spectral waveform analysis was performed. FINDINGS: There is normal color flow, normal compressibility and there are normal spectral waveforms in the left upper extremity veins. There is soft tissue edema within the proximal forearm and surrounding the elbow. IMPRESSION: No Doppler evidence of upper extremity deep venous thrombosis. Electronically signed by: Keith Watkins MD (07/14/2019 2:04 PM) [place] [id number] DICTATED and SIGNED BY: KEITH WATKINS MD DATE: 07/14/19 1404 (PARISH SAUCEDA APRN) Course & Med Decision Making Course & Med Decision Making Pertinent Labs and Imaging studies reviewed. (See chart for details) Will get EKG, labs, chest x-ray, and ultrasound. BNP is 2500, initial troponins are negative. D-dimer is elevated. Will get CT CHEST. Will give 20 mg of Lasix. Will contact hospitalist for admission. Discussed with Dr. Luna who agrees to admission. Will consult Cardiology. (PARISH SAUCEDA APRN) Dragon Disclaimer Dragon Disclaimer This electronic medical record was generated, in whole or in part, using a voice recognition dictation system. (PARISH SAUCEDA APRN) Departure Departure Impression: Primary Impression: Acute exacerbation of CHF (congestive heart failure) Additional Impression: Chest pain Disposition: ADMITTED INPATIENT Admitting Physician: LEANNA (PARISH SAUCEDA APRN) Condition: STABLE Referrals: JOHNNY DAILEY MD (PCP) The HEART Score for CP Pts HEART Score for Chest Pain: HEART Score for Chest Pain Response (Comments) Value History Slighlty/Non-Suspicious 0 ECG Nonspecific Repolarizatio 1 Age > 65 2 Risk Factors >3 Risk Factors or Hx CAD 2 Troponin < Normal Limit 0 Total 5 Risk Factors: Risk Factors: DM, Current or recent (<one month) smoker, HTN, HLP, family history of CAD, obesity. Risk Scores: Score 0 - 3: 2.5% MACE over next 6 weeks - Discharge Home Score 4 - 6: 20.3% MACE over next 6 weeks - Admit for Clinical Observation Score 7 - 10: 72.7% MACE over next 6 weeks - Early Invasive Strategies (PARISH SAUCEDA APRN) Problem Qualifiers Primary Impression: Acute exacerbation of CHF (congestive heart failure) Heart failure type: unspecified Qualified Codes: I50.9 - Heart failure, unspecified Additional Impression: Chest pain Chest pain type: unspecified Qualified Codes: R07.9 - Chest pain, unspecified PARISH SAUCEDA APRN Jul 14, 2019 13:16 MINDA BEAN MD Jul 15, 2019 09:33
--- NOTE | 2019-07-14 14:08 | RAD ---
EXAM: Left upper extremity venous Doppler sonogram. HISTORY: Pain and swelling. TECHNIQUE: Block scale and color Doppler sonographic evaluation of the left upper extremity veins with spectral waveform analysis was performed. FINDINGS: There is normal color flow, normal compressibility and there are normal spectral waveforms in the left upper extremity veins. There is soft tissue edema within the proximal forearm and surrounding the elbow. IMPRESSION: No Doppler evidence of upper extremity deep venous thrombosis. Electronically signed by: Naila Forrester MD (07/14/2019 2:04 PM) [place] [id number]
--- NOTE | 2019-07-14 14:09 | RAD ---
Chest radiograph 07/14/2019 12:00 AM INDICATION: Chest pain COMPARISON: 07/08/2019 TECHNIQUE: Frontal and lateral views of the chest are provided. FINDINGS: The cardiomediastinal silhouette is within normal limits. Left chest wall cardiac device is identified with leads projecting over the right atrium, right ventricle and coronary sinus in similar position the prior examination. There are no pleural effusions. There is no pulmonary vascular congestion. There is no pneumothorax. The lungs are clear. No significant osseous abnormality is identified. IMPRESSION: No acute cardiopulmonary process. Electronically signed by: Winnie Powell MD (07/14/2019 2:06 PM) [id number]
[2019-07-14 14:12] LABS: PROTHROMBIN TIME PATIENT 14.7 SEC (11.7-14.0)
[2019-07-14 14:13] LABS: BASO % 0 % (0-3); EOS % 0 % (0-3); HEMATOCRIT 29.5 % (39.0-53.0); HEMOGLOBIN 9.8 g/dL (13.0-17.5); LYMPH # 1.3 x10^3/uL (1.0-4.8); LYMPH % 13 % (24-48); MEAN CORPUSCULAR HEMOGLOBIN 30 pg (25-35); MEAN CORPUSCULAR HGB CONC 33 g/dL (31-37); MEAN CORPUSCULAR VOLUME 89 fL (79-100); MONO # 0.7 x10^3/uL (0.0-1.1); MONO % 7 % (0-9); NEUT # 8.2 x10^3/uL (1.8-7.7); NEUT % 80 % (31-73); PLATELET COUNT 205 x10^3/uL (140-400); RED BLOOD COUNT 3.33 x10^6/uL (4.30-5.70); RED CELL DISTRIBUTION WIDTH 16.3 % (11.5-14.5); WHITE BLOOD COUNT 10.2 x10^3/uL (4.0-11.0)
[2019-07-14 14:24] LABS: CALCIUM 8.6 mg/dL (8.5-10.1); GFR 73.9; POTASSIUM 4.5 mmol/L (3.5-5.1)
--- NOTE | 2019-07-14 14:24 | EKG ---
[facility] [address] [place] [address] Test Date: 2019-07-14 Test Time: 13:18:22 Pat Name: JV SHEPARD Department: Room: Gender: M Seasonal Tax Preparer: : 1950 Requested By: PARISH SAUCEDA Order Number: [id number] Reading MD: Measurements Intervals Maxwell Rate: 67 P: WA: QRS: -22 QRSD: 98 T: 2 QT: 368 QTc: 391 Interpretive Statements IRREGULAR RHYTHM, NO P-WAVE FOUND VENTRICULAR PREMATURE COMPLEX(ES) LEFTWARD AXIS ABNORMAL ECG RI6.01 No previous ECG available for comparison
[2019-07-14 14:31] LABS: ALBUMIN 3.1 g/dL (3.4-5.0); ALBUMIN/GLOBULIN RATIO 1.1 (1.0-1.7); TOTAL BILIRUBIN 0.4 mg/dL (0.2-1.0); TOTAL PROTEIN 5.9 g/dL (6.4-8.2)
[2019-07-14] MEDS ORDERED: CONTRAST GIVEN. MC PRN (15:00)
[2019-07-14] MEDS ORDERED: IOHEXOL 350 MG/ML 100 ML VIAL. IV ONE (15:00)
[2019-07-14 15:11] LABS: % BANDS 8 % (0-9); % LYMPHS 11 % (24-48); % METAS 2 % (0-0); % MONOS 10 % (0-10); % MYELOS 2 % (0-0); % SEGS 67 % (35-66)
[2019-07-14 15:12] LABS: ANISOCYTOSIS SLIGHT; OVALOCYTES FEW; PLT ESTIMATE ADEQUATE (ADEQUATE); POLYCHROMASIA MOD
[2019-07-14] MEDS ORDERED: FUROSEMIDE 20 MG/2 ML VIAL. IVP STA (15:20)
[2019-07-14] MEDS ORDERED: ONDANSETRON PF 4 MG/2 ML VIAL. IV PRN (16:00)
--- NOTE | 2019-07-14 18:55 | HP ---
ADMIT DATE: 07/14/2019 CHIEF COMPLAINT: Shortness of breath and swelling. HISTORY OF PRESENT ILLNESS: The patient is a pleasant 68-year-old male who had an AICD placed about a week ago. I think Dr. Banks installed it. The patient has been doing relatively well, but he has been getting slowly short of breath and swelling. We did a chest x-ray that is showing some volume overload. His BNP level is also high at 2510. I discussed the case with ER physician. We are going to admit the patient to get him diuresed and consult Cardiology. PAST MEDICAL HISTORY: Recent AICD placement, BPH, and hypertension. ALLERGIES: None. FAMILY HISTORY: Diabetes. SOCIAL HISTORY: He does not drink, smoke, or take drugs. MEDICATIONS: Reviewed. Please refer to the MRAD. REVIEW OF SYSTEMS: GENERAL: He complains of swelling. SKIN: No bruising, hair changes or rashes. EYES: No blurred, double or loss of vision. NOSE AND THROAT: No history of nosebleeds, hoarseness or sore throat. HEART: No history of palpitations, chest pain or shortness of breath on exertion. LUNGS: He complains of intermittent shortness of breath. GASTROINTESTINAL: Denies changes in appetite, nausea, vomiting, diarrhea or constipation. GENITOURINARY: No history of frequency, urgency, hesitancy or nocturia. NEUROLOGIC: Denies history of numbness, tingling, tremor or weakness. PSYCHIATRIC: No history of panic, anxiety or depression. ENDOCRINE: No history of heat or cold intolerance, polyuria or polydipsia. EXTREMITIES: Denies muscle weakness, joint pain, pain on walking or stiffness. PHYSICAL EXAMINATION: VITALS: Within normal limits and are stable. GENERAL: No apparent distress. Alert and oriented. HEENT: Head is normocephalic, atraumatic, pupils were equally round and reactive to light and accommodation. NECK: Supple, no JVD, no thyromegaly was noted. LUNGS: Clear to auscultation in all lung michael without rhonchi or wheezing. HEART: He has S1, S2 with a soft S3. ABDOMEN: Soft, nontender. Positive bowel sounds no organomegaly, normal bowel sounds. EXTREMITIES: Without any cyanosis, clubbing, or edema. Pedal pulses intact, Homans sign is negative. NEUROLOGIC: Normal speech, normal tone. A & O x3, moves all extremities, no obvious focal deficits. PSYCHIATRIC: Normal affect, normal mood. Stable. SKIN: No ulcerations or rashes, good skin turgor, no jaundice. VASCULAR: Good capillary refill, neurovascular bundle appears to be intact. ASSESSMENT AND PLAN: Tctre-kc-skuplul systolic and diastolic heart failure in a middle-aged male who had a recent defibrillator placed. The patient has been admitted. We will give him IV Lasix. Consult Cardiology, cardiac monitoring, serial enzymes, serial EKGs, and echocardiogram. Deep venous thrombosis prophylaxis. Home meds. ROCIOL Chris PALOMINO DO DR: MARÍA ELENA/jazlyn JOB#: [id number] / [id number]
--- NOTE | 2019-07-14 18:59 | RAD ---
Ventilation perfusion exam History: Elevated d-dimer, chest pain Comparison: None Findings: Ventilation perfusion examination was performed. Ventilation images were acquired after the patient inhaled 15 mCi of Xe-133. Perfusion images were acquired after the patient was injected with 6.6 mCi of technetium 99m MAA. There is mild heterogeneity of radiotracer on ventilation images. No mismatched perfusion defect is identified. Impression: Very low probability for pulmonary embolic disease. Electronically signed by: Deja Tabares MD (07/14/2019 6:56 PM) [facility]
[2019-07-14 19:05] VITALS: BP 124/79
[2019-07-14] MEDS ORDERED: METO25TA4 PO (20:13)
[2019-07-14] MEDS ORDERED: NITROGLYCERIN SUBLINGUAL 0.4 MG BOTTLE OF 25. SL PRN (20:45)
[2019-07-14] MEDS ORDERED: HYDROcodone/APAP 5/325MG 1 TAB TABLET PO PRN (20:45)
[2019-07-14] MEDS: TAMSULOSIN 0.4 MG CAP.ER.24H. PO SCH (21:53)
[2019-07-14 23:10] VITALS: BP 114/64
[2019-07-15 02:49] VITALS: BP 143/80
[2019-07-15 04:45] LABS: PROTHROMBIN TIME PATIENT 15.1 SEC (11.7-14.0)
[2019-07-15 07:00] VITALS: BP 158/81
[2019-07-15] MEDS ORDERED: FLU VAX QS 2019-20 (36MOS+)/PF 0.5 ML SYRINGE. VAX IM ONE (09:00)
[2019-07-15] MEDS: TAMSULOSIN 0.4 MG CAP.ER.24H. PO SCH ×2 (09:02→21:16)
[2019-07-15] MEDS: PANTOPRAZOLE 40 MG TABLET.DR. PO SCH (09:02)
[2019-07-15] MEDS: amLODIPine BESYLATE 5 MG TABLET PO SCH (09:03)
[2019-07-15] MEDS: METOPROLOL TART IMMED RELEASE 25 MG TABLET. PO SCH (09:04)
[2019-07-15] MEDS: LOSARTAN POTASSIUM 50 MG TABLET. PO SCH (09:04)
[2019-07-15] MEDS: ASPIRIN ENTERIC COATED 81 MG TABLET.DR. PO SCH (09:04)
--- NOTE | 2019-07-15 09:23 | PDOC ---
PROGRESS NOTES History of Present Illness History of Present Illness ASSESSMENT [id number] systolic and diastolic heart failure recent echo Ejection Fraction is 35-40%. Mild mitral regurgitation. Trace tricuspid regurgitation. The PA pressure was estimated at 26 mmHg. recent defibrillator placed. upgrade of his permanent pacemaker to a [employer] AICD for the primary prevention of cardiac sudden due to his severe cardiomyopathy. Very low probability for pulmonary embolic disease. on v/q 07/14 admitted. IV Lasix. 20mg x 1 now Consult Cardiology, cardiac monitoring, serial enzymes, serial EKGs, echocardiogram. Deep venous thrombosis prophylaxis. Home meds. low salt intake needed 27 min pt exam, chart review, > 50% of time spent with exam, chart review, pt care coordination Vitals Vitals Vital Signs Date Time Temp Pulse Resp B/P (MAP) Pulse Ox O2 Delivery O2 Flow Rate FiO2 07/15/19 09:04 70 158/81 07/15/19 07:00 98.3 16 98 Room Air 98.3 Physical Exam Physical Exam GENERAL: No apparent distress. Alert and oriented. HEENT: Head is normocephalic, atraumatic, pupils were equally round and reactive to light and accommodation. NECK: Supple, no JVD, no thyromegaly was noted. LUNGS: Clear to auscultation in all lung michael without rhonchi or wheezing. HEART: He has S1, S2 with a soft S3. ABDOMEN: Soft, nontender. Positive bowel sounds no organomegaly, normal bowel sounds. EXTREMITIES: Without any cyanosis, clubbing, mild edema. Pedal pulses intact, Homans sign is negative. NEUROLOGIC: Normal speech, normal tone. A & O x3, moves all extremities, no obvious focal deficits. PSYCHIATRIC: Normal affect, normal mood. Stable. SKIN: No ulcerations or rashes, good skin turgor, no jaundice. VASCULAR: Good capillary refill, neurovascular bundle appears to be intact. General: Oriented X3, Cooperative, No acute distress Lungs: Clear Abdomen: Soft Extremities: No cyanosis Labs LABS PATIENT: JENI SHEPARDUNT: [id number] : 1950 LOCATION: [address] [place] [address] AGE: 68 SEX: M EXAM STATUS: ADM IN ORD. PHYSICIAN: PARISH SAUCEDA APRN REASON: elevated d-dimer, chest pain TECH NOTIFIED JM PROCEDURE: LUNG VENT/PERFUSION SCAN(VQ) Ventilation perfusion exam History: Elevated d-dimer, chest pain Comparison: None Findings: Ventilation perfusion examination was performed. Ventilation images were acquired after the patient inhaled 15 mCi of Xe-133. Perfusion images were acquired after the patient was injected with 6.6 mCi of technetium 99m MAA. There is mild heterogeneity of radiotracer on ventilation images. No mismatched perfusion defect is identified. Impression: Very low probability for pulmonary embolic disease. Electronically signed by: Deja Hook MD (07/14/2019 6:56 PM) [facility] DICTATED and SIGNED BY: DEJA HOOK MD DATE: 07/14/191855 APPROVED REPORT EXAM: Two-dimensional and M-mode echocardiogram with Doppler and color Doppler. Other Information Quality : Average HR: 107bpm Rhythm : Tachycardia Technically limited study due to heart rate. INDICATION Congestive Heart Failure 2D DIMENSIONS RVDd 3.0 (2.9-3.5cm) Left Atrium(2D) 4.0 (1.6-4.0cm) IVSd 1.0 (0.7-1.1cm) Aortic Root(2D) 3.5 (2.0-3.7cm) LVDd 5.7 (3.9-5.9cm) LVOT Diameter 2.5 (1.8-2.4cm) PWd 1.0 (0.7-1.1cm) LVDs 4.4 (2.5-4.0cm) FS (%) 22.7 % SV 72.2 ml LVEF(%) 40.0 (>50%) M-Mode DIMENSIONS Left Atrium(MM) 4.10 (2.5-4.0cm) Aortic Root 3.44 (2.2-3.7cm) Aortic Valve AoV Peak Al. 128.2cm/s AoV VTI 22.3cm AO Peak GR. 6.6mmHg LVOT Peak Al. 106.4cm/s AO Mean GR. 4mmHg CONNOR (VMAX) 3.94cm2 CONNOR (VTI) 3.90cm2 Mitral Valve MV E Velocity 105.2cm/s MV DECEL TIME 173ms MV A Velocity 32.8cm/s E/A Ratio 3.2 Pulmonary Valve PV Peak Velocity 100.8cm/s Tricuspid Valve TR P. Velocity 242cm/s RAP ESTIMATE 3mmHg TR Peak Gr. 23mmHg RVSP 26mmHg LEFT VENTRICLE The left ventricle is normal size. There is normal left ventricular wall thi ckness. Left ventricle systolic function is moderately impaired. The Ejection Fraction is 35-40%. There is global hypokinesis of the left ventricle. RIGHT VENTRICLE The right ventricle is normal size. There is normal right ventricular wall thickness. The right ventricular systolic function is normal. ATRIA The left atrium is borderline dilated. The right atrium size is normal. The interatrial septum is intact with no evidence for an atrial septal defect or patent foramen ovale as noted on 2-D or Doppler imaging. AORTIC VALVE The aortic valve is normal in structure and function. The aortic valve is trileaflet. Doppler and Color Flow revealed no significant aortic regurgitation. There is no significant aortic valvular stenosis. MITRAL VALVE The mitral valve is thickened but opens well. There is no evidence of mitral valve prolapse. There is no mitral valve stenosis. Doppler and Color-flow revealed mild mitral regurgitation. TRICUSPID VALVE The tricuspid valve is normal in structure and function. Doppler and Color Flow revealed trace tricuspid regurgitation. The PA pressure was estimated at 26 mmHg. There is no tricuspid valve prolapse or vegetation. There is no tricuspid valve stenosis. PULMONIC VALVE The pulmonary valve is normal in structure and function. Doppler and Color Flow revealed trace pulmonic valvular regurgitation. There is no pulmonic valvular stenosis. GREAT VESSELS The aortic root is normal in size. The ascending aorta is normal in size. The IVC is normal in size and collapses >50% with inspiration. PERICARDIAL EFFUSION There is no evidence of significant pericardial effusion. Critical Notification Critical Value: No <Conclusion> Left ventricle systolic function is moderately impaired. The Ejection Fraction is 35-40%. Mild mitral regurgitation. Trace tricuspid regurgitation. The PA pressure was estimated at 26 mmHg. There is no evidence of significant pericardial effusion. Signed by : Christy Banks, Electronically Approved : 03/21/2019 09:42:16 DICTATED and SIGNED BY: CHRISTY BANKS MD DATE: 03/21/19 0942 Laboratory Tests Test 07/14/19 13:50 07/14/19 14:00 07/14/19 17:15 07/14/19 19:30 Prothrombin Time 14.7 SEC (11.7-14.0) Prothromb Time International Ratio 1.2 (0.8-1.1) Activated Partial Thromboplast Time 24 SEC (24-38) White Blood Count 10.2 x10^3/uL (4.0-11.0) Red Blood Count 3.33 x10^6/uL (4.30-5.70) Hemoglobin 9.8 g/dL (13.0-17.5) Hematocrit 29.5 % (39.0-53.0) Mean Corpuscular Volume 89 fL (79-100) Mean Corpuscular Hemoglobin 30 pg (25-35) Mean Corpuscular Hemoglobin Concent 33 g/dL (31-37) Red Cell Distribution Width 16.3 % (11.5-14.5) Platelet Count 205 x10^3/uL (140-400) Neutrophils (%) (Auto) 80 % (31-73) Lymphocytes (%) (Auto) 13 % (24-48) Monocytes (%) (Auto) 7 % (0-9) Eosinophils (%) (Auto) 0 % (0-3) Basophils (%) (Auto) 0 % (0-3) Neutrophils # (Auto) 8.2 x10^3/uL (1.8-7.7) Lymphocytes # (Auto) 1.3 x10^3/uL (1.0-4.8) Monocytes # (Auto) 0.7 x10^3/uL (0.0-1.1) Eosinophils # (Auto) 0.0 x10^3/uL (0.0-0.7) Basophils # (Auto) 0.0 x10^3/uL (0.0-0.2) Segmented Neutrophils % 67 % (35-66) Band Neutrophils % 8 % (0-9) Lymphocytes % 11 % (24-48) Monocytes % 10 % (0-10) Metamyelocytes % 2 % (0-0) Myelocytes % 2 % (0-0) Platelet Estimate Adequate (ADEQUATE) Polychromasia Mod Basophilic Stippling Present Anisocytosis Slight Ovalocytes Few D-Dimer (Cristel) 0.58 ug/mlFEU (0.00-0.50) Sodium Level 145 mmol/L (136-145) Potassium Level 4.5 mmol/L (3.5-5.1) Chloride Level 107 mmol/L (98-107) Carbon Dioxide Level 29 mmol/L (21-32) Anion Gap 9 (6-14) Blood Urea Nitrogen 25 mg/dL (8-26) Creatinine 1.0 mg/dL (0.7-1.3) Estimated GFR (Cockcroft-Gault) 73.9 BUN/Creatinine Ratio 25 (6-20) Glucose Level 107 mg/dL (70-99) Calcium Level 8.6 mg/dL (8.5-10.1) Magnesium Level 2.0 mg/dL (1.8-2.4) Total Bilirubin 0.4 mg/dL (0.2-1.0) Aspartate Amino Transf (AST/SGOT) 17 U/L (15-37) Alanine Aminotransferase (ALT/SGPT) 38 U/L (16-63) Alkaline Phosphatase 64 U/L (46-116) Creatine Kinase 36 U/L (39-308) Creatine Kinase MB (Mass) 1.8 ng/mL (0.0-3.6) Creatine Kinase MB Relative Index 5.0 % (0-4) Troponin I Quantitative < 0.017 ng/mL (0.000-0.055) < 0.017 ng/mL (0.000-0.055) < 0.017 ng/mL (0.000-0.055) KG-Vec-Z-Type Natriuretic Peptide 2510 pg/mL (0-124) Total Protein 5.9 g/dL (6.4-8.2) Albumin 3.1 g/dL (3.4-5.0) Albumin/Globulin Ratio 1.1 (1.0-1.7) Test 07/15/19 03:40 Prothrombin Time 15.1 SEC (11.7-14.0) Prothromb Time International Ratio 1.2 (0.8-1.1) Assessment and Plan Assessmemt and Plan Problems Medical Problems: (1) Acute exacerbation of CHF (congestive heart failure) Status: Acute (2) Chest pain Status: Acute Comment Review of Relevant I have reviewed the following items grace (where applicable) has been applied. Labs Laboratory Tests Test 07/14/19 13:50 07/14/19 14:00 07/14/19 17:15 07/14/19 19:30 Prothrombin Time 14.7 SEC (11.7-14.0) Prothromb Time International Ratio 1.2 (0.8-1.1) Activated Partial Thromboplast Time 24 SEC (24-38) White Blood Count 10.2 x10^3/uL (4.0-11.0) Red Blood Count 3.33 x10^6/uL (4.30-5.70) Hemoglobin 9.8 g/dL (13.0-17.5) Hematocrit 29.5 % (39.0-53.0) Mean Corpuscular Volume 89 fL (79-100) Mean Corpuscular Hemoglobin 30 pg (25-35) Mean Corpuscular Hemoglobin Concent 33 g/dL (31-37) Red Cell Distribution Width 16.3 % (11.5-14.5) Platelet Count 205 x10^3/uL (140-400) Neutrophils (%) (Auto) 80 % (31-73) Lymphocytes (%) (Auto) 13 % (24-48) Monocytes (%) (Auto) 7 % (0-9) Eosinophils (%) (Auto) 0 % (0-3) Basophils (%) (Auto) 0 % (0-3) Neutrophils # (Auto) 8.2 x10^3/uL (1.8-7.7) Lymphocytes # (Auto) 1.3 x10^3/uL (1.0-4.8) Monocytes # (Auto) 0.7 x10^3/uL (0.0-1.1) Eosinophils # (Auto) 0.0 x10^3/uL (0.0-0.7) Basophils # (Auto) 0.0 x10^3/uL (0.0-0.2) Segmented Neutrophils % 67 % (35-66) Band Neutrophils % 8 % (0-9) Lymphocytes % 11 % (24-48) Monocytes % 10 % (0-10) Metamyelocytes % 2 % (0-0) Myelocytes % 2 % (0-0) Platelet Estimate Adequate (ADEQUATE) Polychromasia Mod Basophilic Stippling Present Anisocytosis Slight Ovalocytes Few D-Dimer (Cristel) 0.58 ug/mlFEU (0.00-0.50) Sodium Level 145 mmol/L (136-145) Potassium Level 4.5 mmol/L (3.5-5.1) Chloride Level 107 mmol/L (98-107) Carbon Dioxide Level 29 mmol/L (21-32) Anion Gap 9 (6-14) Blood Urea Nitrogen 25 mg/dL (8-26) Creatinine 1.0 mg/dL (0.7-1.3) Estimated GFR (Cockcroft-Gault) 73.9 BUN/Creatinine Ratio 25 (6-20) Glucose Level 107 mg/dL (70-99) Calcium Level 8.6 mg/dL (8.5-10.1) Magnesium Level 2.0 mg/dL (1.8-2.4) Total Bilirubin 0.4 mg/dL (0.2-1.0) Aspartate Amino Transf (AST/SGOT) 17 U/L (15-37) Alanine Aminotransferase (ALT/SGPT) 38 U/L (16-63) Alkaline Phosphatase 64 U/L (46-116) Creatine Kinase 36 U/L (39-308) Creatine Kinase MB (Mass) 1.8 ng/mL (0.0-3.6) Creatine Kinase MB Relative Index 5.0 % (0-4) Troponin I Quantitative < 0.017 ng/mL (0.000-0.055) < 0.017 ng/mL (0.000-0.055) < 0.017 ng/mL (0.000-0.055) UL-Qbm-R-Type Natriuretic Peptide 2510 pg/mL (0-124) Total Protein 5.9 g/dL (6.4-8.2) Albumin 3.1 g/dL (3.4-5.0) Albumin/Globulin Ratio 1.1 (1.0-1.7) Test 07/15/19 03:40 Prothrombin Time 15.1 SEC (11.7-14.0) Prothromb Time International Ratio 1.2 (0.8-1.1) Laboratory Tests Test 07/14/19 13:50 07/14/19 14:00 07/14/19 17:15 07/14/19 19:30 Prothrombin Time 14.7 SEC (11.7-14.0) Prothromb Time International Ratio 1.2 (0.8-1.1) Activated Partial Thromboplast Time 24 SEC (24-38) White Blood Count 10.2 x10^3/uL (4.0-11.0) Red Blood Count 3.33 x10^6/uL (4.30-5.70) Hemoglobin 9.8 g/dL (13.0-17.5) Hematocrit 29.5 % (39.0-53.0) Mean Corpuscular Volume 89 fL (79-100) Mean Corpuscular Hemoglobin 30 pg (25-35) Mean Corpuscular Hemoglobin Concent 33 g/dL (31-37) Red Cell Distribution Width 16.3 % (11.5-14.5) Platelet Count 205 x10^3/uL (140-400) Neutrophils (%) (Auto) 80 % (31-73) Lymphocytes (%) (Auto) 13 % (24-48) Monocytes (%) (Auto) 7 % (0-9) Eosinophils (%) (Auto) 0 % (0-3) Basophils (%) (Auto) 0 % (0-3) Neutrophils # (Auto) 8.2 x10^3/uL (1.8-7.7) Lymphocytes # (Auto) 1.3 x10^3/uL (1.0-4.8) Monocytes # (Auto) 0.7 x10^3/uL (0.0-1.1) Eosinophils # (Auto) 0.0 x10^3/uL (0.0-0.7) Basophils # (Auto) 0.0 x10^3/uL (0.0-0.2) Segmented Neutrophils % 67 % (35-66) Band Neutrophils % 8 % (0-9) Lymphocytes % 11 % (24-48) Monocytes % 10 % (0-10) Metamyelocytes % 2 % (0-0) Myelocytes % 2 % (0-0) Platelet Estimate Adequate (ADEQUATE) Polychromasia Mod Basophilic Stippling Present Anisocytosis Slight Ovalocytes Few D-Dimer (Cristel) 0.58 ug/mlFEU (0.00-0.50) Sodium Level 145 mmol/L (136-145) Potassium Level 4.5 mmol/L (3.5-5.1) Chloride Level 107 mmol/L (98-107) Carbon Dioxide Level 29 mmol/L (21-32) Anion Gap 9 (6-14) Blood Urea Nitrogen 25 mg/dL (8-26) Creatinine 1.0 mg/dL (0.7-1.3) Estimated GFR (Cockcroft-Gault) 73.9 BUN/Creatinine Ratio 25 (6-20) Glucose Level 107 mg/dL (70-99) Calcium Level 8.6 mg/dL (8.5-10.1) Magnesium Level 2.0 mg/dL (1.8-2.4) Total Bilirubin 0.4 mg/dL (0.2-1.0) Aspartate Amino Transf (AST/SGOT) 17 U/L (15-37) Alanine Aminotransferase (ALT/SGPT) 38 U/L (16-63) Alkaline Phosphatase 64 U/L (46-116) Creatine Kinase 36 U/L (39-308) Creatine Kinase MB (Mass) 1.8 ng/mL (0.0-3.6) Creatine Kinase MB Relative Index 5.0 % (0-4) Troponin I Quantitative < 0.017 ng/mL (0.000-0.055) < 0.017 ng/mL (0.000-0.055) < 0.017 ng/mL (0.000-0.055) RM-Qlp-C-Type Natriuretic Peptide 2510 pg/mL (0-124) Total Protein 5.9 g/dL (6.4-8.2) Albumin 3.1 g/dL (3.4-5.0) Albumin/Globulin Ratio 1.1 (1.0-1.7) Test 07/15/19 03:40 Prothrombin Time 15.1 SEC (11.7-14.0) Prothromb Time International Ratio 1.2 (0.8-1.1) Medications Current Medications Iohexol (Omnipaque 350 Mg/ml) 100 ml 1X ONCE IV ; Start 07/14/19 at 15:00; Stop 07/14/19 at 15:01; Status DC Info (CONTRAST GIVEN -- Rx MONITORING) 1 each PRN DAILY PRN MC SEE COMMENTS; Start 07/14/19 at 15:00; Stop 07/16/19 at 14:59 Furosemide (Lasix) 20 mg 1X STAT IVP Last administered on 07/14/19at 18:08; Start 07/14/19 at 15:20; Stop 07/14/19 at 15:23; Status DC Ondansetron HCl (Zofran) 4 mg PRN Q8HRS PRN IV NAUSEA/VOMITING; Start 07/14/19 at 16:00; Stop 07/15/19 at 15:59 Amlodipine Besylate (Norvasc) 5 mg DAILY PO Last administered on 07/15/19 09:03; Start 07/15/19 at 09:00 Aspirin (Ecotrin) 81 mg DAILY PO Last administered on 07/15/19at 09:04; Start 07/15/19 at 09:00 Acetaminophen/ Hydrocodone Bitart (Lortab 5/325) 1 tab PRN Q6HRS PRN PO PAIN; Start 07/14/19 at 20:45 Losartan Potassium (Cozaar) 50 mg DAILY PO Last administered on 07/15/19at 09:04; Start 07/15/19 at 09:00 Metoprolol Tartrate (Lopressor) 25 mg DAILY PO Last administered on 07/15/19at 09:04; Start 07/15/19 at 09:00 Nitroglycerin (Nitrostat) 0.4 mg PRN Q5MIN PRN SL CHEST PAIN; Start 07/14/19 at 20:45 Pantoprazole Sodium (Protonix) 40 mg DAILYAC PO Last administered on 07/15/19at 09:02; Start 07/15/19 at 07:30 Tamsulosin HCl (Flomax) 0.4 mg BID PO Last administered on 07/15/19at 09:02; Start 07/14/19 at 21:00 Warfarin Sodium (Coumadin Per Pharmacy) 1 each PRN DAILY PRN MC SEE COMMENTS; Start 07/14/19 at 20:45 Warfarin Sodium (Coumadin) 4 mg 1X WARF ONCE PO ; Start 07/15/19 at 16:00; Stop 07/15/19 at 16:01 Influenza Virus Vaccine Quadrival (Afluria Quad 2019-20 (3yr Up) Syringe) 0.5 ml ONCE ONCE VAX IM ; Start 07/15/19 at 09:00; Stop 07/15/19 at 09:01; Status DC Active Scripts Active Reported Metoprolol Tartrate 25 Mg Tablet 25 Mg PO DAILY Coumadin (Warfarin Sodium) 4 Mg Tablet 4 Mg PO 4X WEEK M,W,F,RIBEIRO Pantoprazole Sodium (Pantoprazole Sodium) 40 Mg Tablet.dr 40 Mg PO DAILYAC Hydrocodone-Apap 5-325 (Hydrocodone Bit/Acetaminophen) 1 Tab Tablet 1 Tab PO PRN Q6HRS PRN Finasteride 5 Mg Tablet 5 Mg PO DAILY Losartan Potassium 50 Mg Tablet 50 Mg PO DAILY Amlodipine Besylate 5 Mg Tablet 5 Mg PO DAILY Coumadin (Warfarin Sodium) 5 Mg Tablet 5 Mg PO 4X/WEEK take , , SAT NITROGLYCERIN SubLingual (Nitroglycerin) 0.4 Mg Tab.subl 0.4 Mg SL PRN Q5MIN PRN Aspir 81 (Aspirin) 81 Mg Tablet.dr 81 Mg PO DAILY Flomax (Tamsulosin Hcl) 0.4 Mg Cap.er.24h 0.4 Mg PO BID Vitals/I & O Vital Sign - Last 24 Hours 07/14/19 07/14/19 07/14/19 07/14/19 13:00 13:30 14:30 15:30 Temp 98.0 98.0 Pulse 73 78 79 73 Resp 18 16 16 18 B/P (MAP) 138/71 (93) 137/81 (99) 144/79 (100) 133/81 (98) Pulse Ox 98 97 97 98 O2 Delivery Room Air Room Air Room Air Room Air 07/14/19 07/14/19 07/14/19 07/14/19 16:30 17:30 19:05 20:00 Temp 98.5 98.5 Pulse 73 81 84 Resp 18 18 16 B/P (MAP) 149/87 (107) 147/83 (104) 124/79 (94) Pulse Ox 98 97 98 O2 Delivery Room Air Room Air Room Air Room Air 07/14/19 07/15/19 07/15/19 07/15/19 23:10 02:49 07:00 09:03 Temp 98.0 97.9 98.3 98.0 97.9 98.3 Pulse 84 71 70 70 Resp 16 17 16 B/P (MAP) 114/64 (81) 143/80 (101) 158/81 (106) 158/81 Pulse Ox 98 97 98 O2 Delivery Room Air Room Air Room Air 07/15/19 07/15/19 09:04 09:04 Pulse 70 70 B/P (MAP) 158/81 158/81 Intake and Output 07/14/19 07/14/19 07/15/19 15:00 23:00 07:00 Intake Total 0 ml Output Total 200 ml Balance -200 ml RIP LOPEZ MD Jul 15, 2019 09:23
[2019-07-15 11:00] VITALS: BP 89/55
--- NOTE | 2019-07-15 12:22 | NUR ---
Pharmacy Warfarin Dosing Note S:Pharmacy consulted to assist with anticoagulation therapy started with target INR: 2 -3 O:JV SHEPARD is a 68 year old M with Atrial Fibrillation LABS: Last INR: 1.2 Last HGB: 9.8 Last HCT: 29.5 Last PLT: 205 Last dose of given on at Previous Regimen: 4MG MWFSU, 5MG ROW Vitamin K given: Drug Interaction Changes: Ongoing Drug Interactions: A:INR of 1.2 is below desired range. Target range for this patient is: 2 -3 P: Warfarin dose: 7.5 mg Today at 1600 Bridge Therapy: None Next INR due 07/16/19. Pharmacy anticoagulation service will continue to follow. JUDITH YE[facility], 07/15/19 [id number]
[2019-07-15] MEDS ORDERED: FUROSEMIDE 20 MG/2 ML VIAL. IVP ONE (12:30)
[2019-07-15 15:00] VITALS: BP 97/51
[2019-07-15] MEDS ORDERED: WARFARIN 4 MG TABLET. PO ONE (16:00)
[2019-07-15] MEDS ORDERED: WARFARIN 7.5 MG TABLET. PO ONE (16:00)
--- NOTE | 2019-07-15 17:18 | NUR ---
Pt complained of 8/10 pain, came on strong and fast, lasts 5 to 10ish minutes, and then leaves just as quickly. Radiating from right back flank sharp intense moving into the frontal upper quadrants and radiates with guarding and firmness.
[2019-07-15 19:19] VITALS: BP 131/75
[2019-07-15 23:27] VITALS: BP 125/67
--- NOTE | 2019-07-16 00:35 | PDOC2 ---
CARDIOLOGY CONSULT NOTE CHEIF COMPLAINT: Late entry for 07/15/2019 HPI: 68 y.o male with prior NICM, presenting with edema. He recently had a ICD upgrade due to cardiomyopathy. Denies any chest pain but does have edema in the hands and legs. No other acute issues. PMHX: NICM HTN DLP SOCHX: No alcohol, tob or illicit drug use. He is . FAMHX: NC CURRENT MEDS: Current Medications Medications (Trade) Dose Ordered Sig/Trinity Route PRN Reason Start Time Stop Time Status Last Admin Dose Admin Amlodipine Besylate (Norvasc) 5 mg DAILY PO 07/15/19 09:00 07/15/19 09:03 Aspirin (Ecotrin) 81 mg DAILY PO 07/15/19 09:00 07/15/19 09:04 Losartan Potassium (Cozaar) 50 mg DAILY PO 07/15/19 09:00 07/15/19 09:04 Metoprolol Tartrate (Lopressor) 25 mg DAILY PO 07/15/19 09:00 07/15/19 09:04 Pantoprazole Sodium (Protonix) 40 mg DAILYAC PO 07/15/19 07:30 07/15/19 09:02 Influenza Virus Vaccine Quadrival (Afluria Quad 2019-20 (3yr Up) Syringe) 0.5 ml ONCE ONCE VAX IM 07/15/19 09:00 07/15/19 09:01 DC 07/15/19 16:15 Furosemide (Lasix) 20 mg 1X ONCE IVP 07/15/19 12:30 07/15/19 12:31 DC 07/15/19 12:30 Warfarin Sodium (Coumadin) 7.5 mg 1X WARF ONCE PO 07/15/19 16:00 07/15/19 16:01 DC 07/15/19 16:11 ALLERGIES: Allergies Coded Allergies Type Severity Reaction Last Updated Verified No Known Drug Allergies 05/26/17 No ROS: Negative for 07/17 systems reviewed. PHYSICAL EXAM: Vital Signs/I&O: Vital Signs Date Time Temp Pulse Resp B/P (MAP) Pulse Ox O2 Delivery O2 Flow Rate FiO2 07/15/19 23:27 98.1 62 18 125/67 (86) 95 Room Air 98.1 I & O 07/15/19 07/15/19 07/16/19 14:59 22:59 06:59 Intake Total 200 ml 340 ml Output Total 250 ml Balance -50 ml 340 ml Physical Exam: GEN.: No apparent distress. Alert and oriented. HEENT: Head is normocephalic, atraumatic NECK: Supple. LUNGS: Clear to auscultation. HEART: RRR, S1, S2 present. Peripheral pulses intact ABDOMEN: Soft, nontender. Positive bowel sounds. EXTREMITIES: 1+ pedal edema NEUROLOGIC: Normal speech, normal tone PSYCHIATRIC: Normal affect, normal mood. SKIN: No ulcerations DIAGNOSTIC TESTING: v/q scan - low probl LUE DVT scan - none Lab Laboratory Tests Test 07/15/19 03:40 Prothrombin Time 15.1 SEC (11.7-14.0) H Prothromb Time International Ratio 1.2 (0.8-1.1) H ASSESSMENT: 1. Afib - on anticoagulation 2. HTN 3. NICM 4. DLP 5. Acute on chronic systolic and diastolic HF. PLAN: 1. Plan for continued diuresis. -Med titration over the next 24 hours. Plan for DC likely tmrw. Thanks. BEV CARVALHO MD Jul 16, 2019 00:35
[2019-07-16 03:22] VITALS: BP 143/68
[2019-07-16 04:38] LABS: CALCIUM 8.2 mg/dL (8.5-10.1); CREATININE 1.2 mg/dL (0.7-1.3); GFR 59.9; POTASSIUM 4.3 mmol/L (3.5-5.1)
[2019-07-16 07:15] VITALS: BP 146/79
[2019-07-16] MEDS: PANTOPRAZOLE 40 MG TABLET.DR. PO SCH (08:51)
[2019-07-16] MEDS: ASPIRIN ENTERIC COATED 81 MG TABLET.DR. PO SCH (08:51)
[2019-07-16] MEDS: TAMSULOSIN 0.4 MG CAP.ER.24H. PO SCH ×2 (08:51→20:18)
[2019-07-16] MEDS: amLODIPine BESYLATE 5 MG TABLET PO SCH (08:52)
[2019-07-16] MEDS: LOSARTAN POTASSIUM 50 MG TABLET. PO SCH (08:52)
[2019-07-16] MEDS: METOPROLOL TART IMMED RELEASE 25 MG TABLET. PO SCH (08:52)
--- NOTE | 2019-07-16 10:25 | PDOC ---
PROGRESS NOTES History of Present Illness History of Present Illness ASSESSMENT Gygix-qa-[id number] systolic and diastolic heart failure recent echo Ejection Fraction is 35-40%. Mild mitral regurgitation. Trace tricuspid regurgitation. The PA pressure was estimated at 26 mmHg. recent defibrillator placed. upgrade of his permanent pacemaker to a [employer] AICD for the primary prevention of cardiac sudden due to his severe cardiomyopathy. Very low probability for pulmonary embolic disease. on v/q 07/14 07/16 some ruq discomfort admitted. IV Lasix. 20mg x 1 now Consult Cardiology, cardiac monitoring, serial enzymes, serial EKGs, echocardiogram. Deep venous thrombosis prophylaxis. Home meds. low salt intake needed abd sono today 27 min pt exam, chart review, > 50% of time spent with exam, chart review, pt care coordination Vitals Vitals Vital Signs Date Time Temp Pulse Resp B/P (MAP) Pulse Ox O2 Delivery O2 Flow Rate FiO2 07/16/19 08:52 67 146/79 07/16/19 07:15 97.6 18 98 Room Air 97.6 Physical Exam Physical Exam GENERAL: No apparent distress. Alert and oriented. HEENT: Head is normocephalic, atraumatic, pupils were equally round and reactive to light and accommodation. NECK: Supple, no JVD, no thyromegaly was noted. LUNGS: Clear to auscultation in all lung michael without rhonchi or wheezing. HEART: He has S1, S2 with a soft S3. ABDOMEN: Soft, nontender. Positive bowel sounds no organomegaly, normal bowel sounds. EXTREMITIES: Without any cyanosis, clubbing, mild edema. Pedal pulses intact, Homans sign is negative. NEUROLOGIC: Normal speech, normal tone. A & O x3, moves all extremities, no obvious focal deficits. PSYCHIATRIC: Normal affect, normal mood. Stable. SKIN: No ulcerations or rashes, good skin turgor, no jaundice. VASCULAR: Good capillary refill, neurovascular bundle appears to be intact. General: Oriented X3, Cooperative, No acute distress Lungs: Clear Abdomen: Soft Extremities: No cyanosis Labs LABS Laboratory Tests Test 07/16/19 04:00 Sodium Level 140 mmol/L (136-145) Potassium Level 4.3 mmol/L (3.5-5.1) Chloride Level 105 mmol/L (98-107) Carbon Dioxide Level 27 mmol/L (21-32) Anion Gap 8 (6-14) Blood Urea Nitrogen 27 mg/dL (8-26) Creatinine 1.2 mg/dL (0.7-1.3) Estimated GFR (Cockcroft-Gault) 59.9 Glucose Level 146 mg/dL (70-99) Calcium Level 8.2 mg/dL (8.5-10.1) Assessment and Plan Assessmemt and Plan Problems Medical Problems: (1) Acute exacerbation of CHF (congestive heart failure) Status: Acute (2) Chest pain Status: Acute Comment Review of Relevant I have reviewed the following items grace (where applicable) has been applied. Labs Laboratory Tests Test 07/14/19 13:50 07/14/19 14:00 07/14/19 17:15 07/14/19 19:30 Prothrombin Time 14.7 SEC (11.7-14.0) Prothromb Time International Ratio 1.2 (0.8-1.1) Activated Partial Thromboplast Time 24 SEC (24-38) White Blood Count 10.2 x10^3/uL (4.0-11.0) Red Blood Count 3.33 x10^6/uL (4.30-5.70) Hemoglobin 9.8 g/dL (13.0-17.5) Hematocrit 29.5 % (39.0-53.0) Mean Corpuscular Volume 89 fL (79-100) Mean Corpuscular Hemoglobin 30 pg (25-35) Mean Corpuscular Hemoglobin Concent 33 g/dL (31-37) Red Cell Distribution Width 16.3 % (11.5-14.5) Platelet Count 205 x10^3/uL (140-400) Neutrophils (%) (Auto) 80 % (31-73) Lymphocytes (%) (Auto) 13 % (24-48) Monocytes (%) (Auto) 7 % (0-9) Eosinophils (%) (Auto) 0 % (0-3) Basophils (%) (Auto) 0 % (0-3) Neutrophils # (Auto) 8.2 x10^3/uL (1.8-7.7) Lymphocytes # (Auto) 1.3 x10^3/uL (1.0-4.8) Monocytes # (Auto) 0.7 x10^3/uL (0.0-1.1) Eosinophils # (Auto) 0.0 x10^3/uL (0.0-0.7) Basophils # (Auto) 0.0 x10^3/uL (0.0-0.2) Segmented Neutrophils % 67 % (35-66) Band Neutrophils % 8 % (0-9) Lymphocytes % 11 % (24-48) Monocytes % 10 % (0-10) Metamyelocytes % 2 % (0-0) Myelocytes % 2 % (0-0) Platelet Estimate Adequate (ADEQUATE) Polychromasia Mod Basophilic Stippling Present Anisocytosis Slight Ovalocytes Few D-Dimer (Cristel) 0.58 ug/mlFEU (0.00-0.50) Sodium Level 145 mmol/L (136-145) Potassium Level 4.5 mmol/L (3.5-5.1) Chloride Level 107 mmol/L (98-107) Carbon Dioxide Level 29 mmol/L (21-32) Anion Gap 9 (6-14) Blood Urea Nitrogen 25 mg/dL (8-26) Creatinine 1.0 mg/dL (0.7-1.3) Estimated GFR (Cockcroft-Gault) 73.9 BUN/Creatinine Ratio 25 (6-20) Glucose Level 107 mg/dL (70-99) Calcium Level 8.6 mg/dL (8.5-10.1) Magnesium Level 2.0 mg/dL (1.8-2.4) Total Bilirubin 0.4 mg/dL (0.2-1.0) Aspartate Amino Transf (AST/SGOT) 17 U/L (15-37) Alanine Aminotransferase (ALT/SGPT) 38 U/L (16-63) Alkaline Phosphatase 64 U/L (46-116) Creatine Kinase 36 U/L (39-308) Creatine Kinase MB (Mass) 1.8 ng/mL (0.0-3.6) Creatine Kinase MB Relative Index 5.0 % (0-4) Troponin I Quantitative < 0.017 ng/mL (0.000-0.055) < 0.017 ng/mL (0.000-0.055) < 0.017 ng/mL (0.000-0.055) HL-Glb-D-Type Natriuretic Peptide 2510 pg/mL (0-124) Total Protein 5.9 g/dL (6.4-8.2) Albumin 3.1 g/dL (3.4-5.0) Albumin/Globulin Ratio 1.1 (1.0-1.7) Test 07/15/19 03:40 07/16/19 04:00 Prothrombin Time 15.1 SEC (11.7-14.0) Prothromb Time International Ratio 1.2 (0.8-1.1) Sodium Level 140 mmol/L (136-145) Potassium Level 4.3 mmol/L (3.5-5.1) Chloride Level 105 mmol/L (98-107) Carbon Dioxide Level 27 mmol/L (21-32) Anion Gap 8 (6-14) Blood Urea Nitrogen 27 mg/dL (8-26) Creatinine 1.2 mg/dL (0.7-1.3) Estimated GFR (Cockcroft-Gault) 59.9 Glucose Level 146 mg/dL (70-99) Calcium Level 8.2 mg/dL (8.5-10.1) Laboratory Tests Test 07/16/19 04:00 Sodium Level 140 mmol/L (136-145) Potassium Level 4.3 mmol/L (3.5-5.1) Chloride Level 105 mmol/L (98-107) Carbon Dioxide Level 27 mmol/L (21-32) Anion Gap 8 (6-14) Blood Urea Nitrogen 27 mg/dL (8-26) Creatinine 1.2 mg/dL (0.7-1.3) Estimated GFR (Cockcroft-Gault) 59.9 Glucose Level 146 mg/dL (70-99) Calcium Level 8.2 mg/dL (8.5-10.1) Medications Current Medications Iohexol (Omnipaque 350 Mg/ml) 100 ml 1X ONCE IV ; Start 07/14/19 at 15:00; Stop 07/14/19 at 15:01; Status DC Info (CONTRAST GIVEN -- Rx MONITORING) 1 each PRN DAILY PRN MC SEE COMMENTS; Start 07/14/19 at 15:00; Stop 07/16/19 at 14:59 Furosemide (Lasix) 20 mg 1X STAT IVP Last administered on 07/14/19at 18:08; Start 07/14/19 at 15:20; Stop 07/14/19 at 15:23; Status DC Ondansetron HCl (Zofran) 4 mg PRN Q8HRS PRN IV NAUSEA/VOMITING; Start 07/14/19 at 16:00; Stop 07/15/19 at 15:59; Status DC Amlodipine Besylate (Norvasc) 5 mg DAILY PO Last administered on 07/16/19 08:52; Start 07/15/19 at 09:00 Aspirin (Ecotrin) 81 mg DAILY PO Last administered on 07/16/19 08:51; Start 07/15/19 at 09:00 Acetaminophen/ Hydrocodone Bitart (Lortab 5/325) 1 tab PRN Q6HRS PRN PO PAIN Last administered on 07/15/19 17:11; Start 07/14/19 at 20:45 Losartan Potassium (Cozaar) 50 mg DAILY PO Last administered on 07/16/19 08:52; Start 07/15/19 at 09:00 Metoprolol Tartrate (Lopressor) 25 mg DAILY PO Last administered on 07/16/19 08:52; Start 07/15/19 at 09:00 Nitroglycerin (Nitrostat) 0.4 mg PRN Q5MIN PRN SL CHEST PAIN; Start 07/14/19 at 20:45 Pantoprazole Sodium (Protonix) 40 mg DAILYAC PO Last administered on 07/16/19 08:51; Start 07/15/19 at 07:30 Tamsulosin HCl (Flomax) 0.4 mg BID PO Last administered on 07/16/19 08:51; Start 07/14/19 at 21:00 Warfarin Sodium (Coumadin Per Pharmacy) 1 each PRN DAILY PRN MC SEE COMMENTS Last administered on 07/15/19 12:21; Start 07/14/19 at 20:45 Warfarin Sodium (Coumadin) 4 mg 1X WARF ONCE PO ; Start 07/15/19 at 16:00; Stop 07/15/19 at 12:19; Status DC Influenza Virus Vaccine Quadrival (Afluria Quad 2019-20 (3yr Up) Syringe) 0.5 ml ONCE ONCE VAX IM Last administered on 07/15/19 16:15; Start 07/15/19 at 09:00; Stop 07/15/19 at 09:01; Status DC Furosemide (Lasix) 20 mg 1X ONCE IVP Last administered on 10/12/19at 12:30; Start 07/15/19 at 12:30; Stop 07/15/19 at 12:31; Status DC Warfarin Sodium (Coumadin) 7.5 mg 1X WARF ONCE PO Last administered on 07/15/19at 16:11; Start 07/15/19 at 16:00; Stop 07/15/19 at 16:01; Status DC Active Scripts Active Reported Metoprolol Tartrate 25 Mg Tablet 25 Mg PO DAILY Coumadin (Warfarin Sodium) 4 Mg Tablet 4 Mg PO 4X WEEK M,W,F,RIBEIRO Pantoprazole Sodium (Pantoprazole Sodium) 40 Mg Tablet.dr 40 Mg PO DAILYAC Hydrocodone-Apap 5-325 (Hydrocodone Bit/Acetaminophen) 1 Tab Tablet 1 Tab PO PRN Q6HRS PRN Finasteride 5 Mg Tablet 5 Mg PO DAILY Losartan Potassium 50 Mg Tablet 50 Mg PO DAILY Amlodipine Besylate 5 Mg Tablet 5 Mg PO DAILY Coumadin (Warfarin Sodium) 5 Mg Tablet 5 Mg PO 4X/WEEK take , , SAT NITROGLYCERIN SubLingual (Nitroglycerin) 0.4 Mg Tab.subl 0.4 Mg SL PRN Q5MIN PRN Aspir 81 (Aspirin) 81 Mg Tablet.dr 81 Mg PO DAILY Flomax (Tamsulosin Hcl) 0.4 Mg Cap.er.24h 0.4 Mg PO BID Vitals/I & O Vital Sign - Last 24 Hours 07/15/19 07/15/19 07/15/19 07/15/19 11:00 15:00 17:11 18:59 Temp 98.4 98.8 98.4 98.8 Pulse 76 72 Resp 18 18 B/P (MAP) 89/55 (66) 97/51 (66) Pulse Ox 100 98 98 98 O2 Delivery Room Air Room Air Room Air Room Air 07/15/19 07/15/19 07/15/19 07/16/19 19:19 20:00 23:27 03:22 Temp 97.6 98.1 97.8 97.6 98.1 97.8 Pulse 71 62 67 Resp 18 18 20 B/P (MAP) 131/75 (93) 125/67 (86) 143/68 (93) Pulse Ox 97 95 97 O2 Delivery Room Air Room Air Room Air Room Air 07/16/19 07/16/19 07/16/19 07/16/19 07:15 08:52 08:52 08:52 Temp 97.6 97.6 Pulse 67 67 67 67 Resp 18 B/P (MAP) 146/79 (101) 146/79 146/79 146/79 Pulse Ox 98 O2 Delivery Room Air Intake and Output 07/15/19 07/15/19 07/16/19 14:59 22:59 06:59 Intake Total 200 ml 340 ml 0 ml Output Total 250 ml Balance -50 ml 340 ml 0 ml RIP LOPEZ MD Jul 16, 2019 10:25
[2019-07-16 10:52] VITALS: BP 111/61
[2019-07-16 14:46] VITALS: BP 114/57
[2019-07-16] MEDS ORDERED: WARFARIN 5 MG TABLET. PO ONE (16:00)
[2019-07-16 16:59] LABS: PROTHROMBIN TIME PATIENT 15.5 SEC (11.7-14.0)
--- NOTE | 2019-07-16 18:19 | NUR ---
Pt's IV was accidentally removed by pt. Direct pressure applied. Conrado charge accounts audit clerk at beside to insert new IV. Two attempts done but IV blew. Pt and family was upset and refuses another IV insertion. Will notify phthalic acid purifier to place IV as pt is not willing at this time.
[2019-07-16 19:13] VITALS: BP 122/48
[2019-07-16] MEDS ORDERED: ACETAMINOPHEN/CODEINE 300/30MG TABLET. PO PRN (20:15)
[2019-07-16] MEDS ORDERED: ONDANSETRON PF 4 MG/2 ML VIAL. IVP PRN (20:15)
[2019-07-16] MEDS ORDERED: TEMAZEPAM 7.5 MG CAPSULE PO PRN (20:15)
[2019-07-16] MEDS ORDERED: ACETAMINOPHEN 500 MG TABLET PO PRN (20:15)
[2019-07-16 23:58] VITALS: BP 122/65
[2019-07-17 03:36] VITALS: BP 125/67
[2019-07-17 07:42] LABS: BASO % 0 % (0-3); EOS # 0.1 x10^3/uL (0.0-0.7); EOS % 1 % (0-3); HEMATOCRIT 26.3 % (39.0-53.0); HEMOGLOBIN 8.9 g/dL (13.0-17.5); LYMPH # 1.8 x10^3/uL (1.0-4.8); LYMPH % 25 % (24-48); MEAN CORPUSCULAR HEMOGLOBIN 29 pg (25-35); MEAN CORPUSCULAR HGB CONC 34 g/dL (31-37); MEAN CORPUSCULAR VOLUME 87 fL (79-100); MONO # 0.4 x10^3/uL (0.0-1.1); MONO % 5 % (0-9); NEUT # 4.9 x10^3/uL (1.8-7.7); NEUT % 68 % (31-73); PLATELET COUNT 179 x10^3/uL (140-400); RED BLOOD COUNT 3.04 x10^6/uL (4.30-5.70); RED CELL DISTRIBUTION WIDTH 16.1 % (11.5-14.5); WHITE BLOOD COUNT 7.1 x10^3/uL (4.0-11.0)
[2019-07-17 07:43] LABS: PROTHROMBIN TIME PATIENT 17.3 SEC (11.7-14.0)
[2019-07-17 07:59] VITALS: BP 144/83
--- NOTE | 2019-07-17 08:09 | RAD ---
Examination: ABDOMEN COMPLETE History: Pain Comparison/Correlation: 04/07/2018 CT Abd and Pelvis with contrast Findings: Complete abdominal ultrasound examination was performed. Fatty infiltration of the liver is present. Portal venous flow is unremarkable. Hepatic venous flow was also unremarkable. The gallbladder fossa is normal. No upper abdominal ascites. Common bile duct measures 0.3 cm diameter. Liver length is 17 cm. Right kidney measures 11 cm x 5.2 cm x 5.4 cm. Left kidney measures 11.3 cm x 4.8 cm x 5.5 cm. Renal cortical echotexture bilaterally is unremarkable. No hydronephrosis. Lobulation of the renal contours bilaterally is seen. Proximal pancreas is partially visualized and unremarkable. Distal pancreas is unremarkable. Abdominal aortic diameter of 2.5 cm is unremarkable. Inferior vena cava is unremarkable. Impression: Fatty infiltration of the liver. No suspicious process. Electronically signed by: Kyler John MD (07/17/2019 8:06 AM) [facility]
[2019-07-17 08:15] LABS: ALBUMIN 2.6 g/dL (3.4-5.0); CALCIUM 8.1 mg/dL (8.5-10.1); GFR 73.9; TOTAL BILIRUBIN 0.3 mg/dL (0.2-1.0); TOTAL PROTEIN 5.3 g/dL (6.4-8.2)
--- NOTE | 2019-07-17 08:36 | PDOC ---
PROGRESS NOTES Chief Complaint Chief Complaint ASSESSMENT Cabnf-ya-[id number] systolic and diastolic heart failure recent echo Ejection Fraction is 35-40%. Mild mitral regurgitation. Trace tricuspid regurgitation. The PA pressure was estimated at 26 mmHg. recent defibrillator placed. upgrade of his permanent pacemaker to a [employer] AICD for the primary prevention of cardiac sudden due to his severe cardiomyopathy. Very low probability for pulmonary embolic disease. on v/q 07/14 07/16 some ruq discomfort admitted. IV Lasix. 20mg x 1 now Consult Cardiology, cardiac monitoring, serial enzymes, serial EKGs, echocardiogram. Deep venous thrombosis prophylaxis. Home meds. low salt intake needed abd sono today 27 min pt exam, chart review, > 50% of time spent with exam, chart review, pt care coordination History of Present Illness History of Present Illness Mr Briggs is a 68-year-old male w/ PMHx BPH, HTN, chronic systolic CHF with recent AICD placement who has been getting slowly short of breath and had increased lower extremity swelling. Admitted for acute CHF, diuresed and consulted Cardiology. Improved shortness of breath and swelling after second dosing of IV lasix. He denies any chest pain or GI complaints. Vitals Vitals Vital Signs Date Time Temp Pulse Resp B/P (MAP) Pulse Ox O2 Delivery O2 Flow Rate FiO2 07/17/19 07:59 99.7 73 16 144/83 (103) 96 Room Air 99.7 Physical Exam Physical Exam GENERAL: No apparent distress. Alert and oriented. HEENT: Head is normocephalic, atraumatic, pupils were equally round and reactive to light and accommodation. NECK: Supple, no JVD, no thyromegaly was noted. LUNGS: Clear to auscultation in all lung michael without rhonchi or wheezing. HEART: He has S1, S2 with a soft S3. ABDOMEN: Soft, nontender. Positive bowel sounds no organomegaly, normal bowel sounds. EXTREMITIES: Without any cyanosis, clubbing, mild edema. Pedal pulses intact, Homans sign is negative. NEUROLOGIC: Normal speech, normal tone. A & O x3, moves all extremities, no obvious focal deficits. PSYCHIATRIC: Normal affect, normal mood. Stable. SKIN: No ulcerations or rashes, good skin turgor, no jaundice. VASCULAR: Good capillary refill, neurovascular bundle appears to be intact. General: Oriented X3, Cooperative, No acute distress Lungs: Clear Abdomen: Soft Extremities: No cyanosis Labs LABS Laboratory Tests Test 07/16/19 16:25 07/17/19 05:40 Prothrombin Time 15.5 SEC (11.7-14.0) 17.3 SEC (11.7-14.0) Prothromb Time International Ratio 1.3 (0.8-1.1) 1.4 (0.8-1.1) White Blood Count 7.1 x10^3/uL (4.0-11.0) Red Blood Count 3.04 x10^6/uL (4.30-5.70) Hemoglobin 8.9 g/dL (13.0-17.5) Hematocrit 26.3 % (39.0-53.0) Mean Corpuscular Volume 87 fL (79-100) Mean Corpuscular Hemoglobin 29 pg (25-35) Mean Corpuscular Hemoglobin Concent 34 g/dL (31-37) Red Cell Distribution Width 16.1 % (11.5-14.5) Platelet Count 179 x10^3/uL (140-400) Neutrophils (%) (Auto) 68 % (31-73) Lymphocytes (%) (Auto) 25 % (24-48) Monocytes (%) (Auto) 5 % (0-9) Eosinophils (%) (Auto) 1 % (0-3) Basophils (%) (Auto) 0 % (0-3) Neutrophils # (Auto) 4.9 x10^3/uL (1.8-7.7) Lymphocytes # (Auto) 1.8 x10^3/uL (1.0-4.8) Monocytes # (Auto) 0.4 x10^3/uL (0.0-1.1) Eosinophils # (Auto) 0.1 x10^3/uL (0.0-0.7) Basophils # (Auto) 0.0 x10^3/uL (0.0-0.2) Sodium Level 144 mmol/L (136-145) Potassium Level 4.0 mmol/L (3.5-5.1) Chloride Level 109 mmol/L (98-107) Carbon Dioxide Level 28 mmol/L (21-32) Anion Gap 7 (6-14) Blood Urea Nitrogen 18 mg/dL (8-26) Creatinine 1.0 mg/dL (0.7-1.3) Estimated GFR (Cockcroft-Gault) 73.9 BUN/Creatinine Ratio 18 (6-20) Glucose Level 99 mg/dL (70-99) Calcium Level 8.1 mg/dL (8.5-10.1) Total Bilirubin 0.3 mg/dL (0.2-1.0) Aspartate Amino Transf (AST/SGOT) 11 U/L (15-37) Alanine Aminotransferase (ALT/SGPT) 30 U/L (16-63) Alkaline Phosphatase 48 U/L (46-116) Total Protein 5.3 g/dL (6.4-8.2) Albumin 2.6 g/dL (3.4-5.0) Albumin/Globulin Ratio 1.0 (1.0-1.7) Assessment and Plan Assessmemt and Plan Problems Medical Problems: (1) Acute exacerbation of CHF (congestive heart failure) Status: Acute (2) Chest pain Status: Acute Comment Review of Relevant I have reviewed the following items grace (where applicable) has been applied. Labs Laboratory Tests Test 07/16/19 04:00 07/16/19 16:25 07/17/19 05:40 Sodium Level 140 mmol/L (136-145) 144 mmol/L (136-145) Potassium Level 4.3 mmol/L (3.5-5.1) 4.0 mmol/L (3.5-5.1) Chloride Level 105 mmol/L (98-107) 109 mmol/L (98-107) Carbon Dioxide Level 27 mmol/L (21-32) 28 mmol/L (21-32) Anion Gap 8 (6-14) 7 (6-14) Blood Urea Nitrogen 27 mg/dL (8-26) 18 mg/dL (8-26) Creatinine 1.2 mg/dL (0.7-1.3) 1.0 mg/dL (0.7-1.3) Estimated GFR (Cockcroft-Gault) 59.9 73.9 Glucose Level 146 mg/dL (70-99) 99 mg/dL (70-99) Calcium Level 8.2 mg/dL (8.5-10.1) 8.1 mg/dL (8.5-10.1) Prothrombin Time 15.5 SEC (11.7-14.0) 17.3 SEC (11.7-14.0) Prothromb Time International Ratio 1.3 (0.8-1.1) 1.4 (0.8-1.1) White Blood Count 7.1 x10^3/uL (4.0-11.0) Red Blood Count 3.04 x10^6/uL (4.30-5.70) Hemoglobin 8.9 g/dL (13.0-17.5) Hematocrit 26.3 % (39.0-53.0) Mean Corpuscular Volume 87 fL (79-100) Mean Corpuscular Hemoglobin 29 pg (25-35) Mean Corpuscular Hemoglobin Concent 34 g/dL (31-37) Red Cell Distribution Width 16.1 % (11.5-14.5) Platelet Count 179 x10^3/uL (140-400) Neutrophils (%) (Auto) 68 % (31-73) Lymphocytes (%) (Auto) 25 % (24-48) Monocytes (%) (Auto) 5 % (0-9) Eosinophils (%) (Auto) 1 % (0-3) Basophils (%) (Auto) 0 % (0-3) Neutrophils # (Auto) 4.9 x10^3/uL (1.8-7.7) Lymphocytes # (Auto) 1.8 x10^3/uL (1.0-4.8) Monocytes # (Auto) 0.4 x10^3/uL (0.0-1.1) Eosinophils # (Auto) 0.1 x10^3/uL (0.0-0.7) Basophils # (Auto) 0.0 x10^3/uL (0.0-0.2) BUN/Creatinine Ratio 18 (6-20) Total Bilirubin 0.3 mg/dL (0.2-1.0) Aspartate Amino Transf (AST/SGOT) 11 U/L (15-37) Alanine Aminotransferase (ALT/SGPT) 30 U/L (16-63) Alkaline Phosphatase 48 U/L (46-116) Total Protein 5.3 g/dL (6.4-8.2) Albumin 2.6 g/dL (3.4-5.0) Albumin/Globulin Ratio 1.0 (1.0-1.7) Laboratory Tests Test 07/16/19 16:25 07/17/19 05:40 Prothrombin Time 15.5 SEC (11.7-14.0) 17.3 SEC (11.7-14.0) Prothromb Time International Ratio 1.3 (0.8-1.1) 1.4 (0.8-1.1) White Blood Count 7.1 x10^3/uL (4.0-11.0) Red Blood Count 3.04 x10^6/uL (4.30-5.70) Hemoglobin 8.9 g/dL (13.0-17.5) Hematocrit 26.3 % (39.0-53.0) Mean Corpuscular Volume 87 fL (79-100) Mean Corpuscular Hemoglobin 29 pg (25-35) Mean Corpuscular Hemoglobin Concent 34 g/dL (31-37) Red Cell Distribution Width 16.1 % (11.5-14.5) Platelet Count 179 x10^3/uL (140-400) Neutrophils (%) (Auto) 68 % (31-73) Lymphocytes (%) (Auto) 25 % (24-48) Monocytes (%) (Auto) 5 % (0-9) Eosinophils (%) (Auto) 1 % (0-3) Basophils (%) (Auto) 0 % (0-3) Neutrophils # (Auto) 4.9 x10^3/uL (1.8-7.7) Lymphocytes # (Auto) 1.8 x10^3/uL (1.0-4.8) Monocytes # (Auto) 0.4 x10^3/uL (0.0-1.1) Eosinophils # (Auto) 0.1 x10^3/uL (0.0-0.7) Basophils # (Auto) 0.0 x10^3/uL (0.0-0.2) Sodium Level 144 mmol/L (136-145) Potassium Level 4.0 mmol/L (3.5-5.1) Chloride Level 109 mmol/L (98-107) Carbon Dioxide Level 28 mmol/L (21-32) Anion Gap 7 (6-14) Blood Urea Nitrogen 18 mg/dL (8-26) Creatinine 1.0 mg/dL (0.7-1.3) Estimated GFR (Cockcroft-Gault) 73.9 BUN/Creatinine Ratio 18 (6-20) Glucose Level 99 mg/dL (70-99) Calcium Level 8.1 mg/dL (8.5-10.1) Total Bilirubin 0.3 mg/dL (0.2-1.0) Aspartate Amino Transf (AST/SGOT) 11 U/L (15-37) Alanine Aminotransferase (ALT/SGPT) 30 U/L (16-63) Alkaline Phosphatase 48 U/L (46-116) Total Protein 5.3 g/dL (6.4-8.2) Albumin 2.6 g/dL (3.4-5.0) Albumin/Globulin Ratio 1.0 (1.0-1.7) Medications Current Medications Iohexol (Omnipaque 350 Mg/ml) 100 ml 1X ONCE IV ; Start 07/14/19 at 15:00; Stop 07/14/19 at 15:01; Status DC Info (CONTRAST GIVEN -- Rx MONITORING) 1 each PRN DAILY PRN MC SEE COMMENTS; Start 07/14/19 at 15:00; Stop 07/16/19 at 14:59; Status DC Furosemide (Lasix) 20 mg 1X STAT IVP Last administered on 07/14/19at 18:08; Start 07/14/19 at 15:20; Stop 07/14/19 at 15:23; Status DC Ondansetron HCl (Zofran) 4 mg PRN Q8HRS PRN IV NAUSEA/VOMITING; Start 07/14/19 at 16:00; Stop 07/15/19 at 15:59; Status DC Amlodipine Besylate (Norvasc) 5 mg DAILY PO Last administered on 07/16/19at 08:52; Start 07/15/19 at 09:00 Aspirin (Ecotrin) 81 mg DAILY PO Last administered on 07/16/19 08:51; Start 07/15/19 at 09:00 Acetaminophen/ Hydrocodone Bitart (Lortab 5/325) 1 tab PRN Q6HRS PRN PO SEVERE PAIN Last administered on 07/15/19at 17:11; Start 07/14/19 at 20:45 Losartan Potassium (Cozaar) 50 mg DAILY PO Last administered on 07/16/19at 08:52; Start 07/15/19 at 09:00 Metoprolol Tartrate (Lopressor) 25 mg DAILY PO Last administered on 07/16/19 08:52; Start 07/15/19 at 09:00 Nitroglycerin (Nitrostat) 0.4 mg PRN Q5MIN PRN SL CHEST PAIN; Start 07/14/19 at 20:45 Pantoprazole Sodium (Protonix) 40 mg DAILYAC PO Last administered on 07/16/19 08:51; Start 07/15/19 at 07:30 Tamsulosin HCl (Flomax) 0.4 mg BID PO Last administered on 07/16/19 20:18; Start 07/14/19 at 21:00 Warfarin Sodium (Coumadin Per Pharmacy) 1 each PRN DAILY PRN MC SEE COMMENTS Last administered on 07/16/19 15:03; Start 07/14/19 at 20:45 Warfarin Sodium (Coumadin) 4 mg 1X WARF ONCE PO ; Start 07/15/19 at 16:00; Stop 07/15/19 at 12:19; Status DC Influenza Virus Vaccine Quadrival (Afluria Quad 2019-20 (3yr Up) Syringe) 0.5 ml ONCE ONCE VAX IM Last administered on 07/15/19at 16:15; Start 07/15/19 at 09:00; Stop 07/15/19 at 09:01; Status DC Furosemide (Lasix) 20 mg 1X ONCE IVP Last administered on 07/15/19at 12:30; Start 07/15/19 at 12:30; Stop 07/15/19 at 12:31; Status DC Warfarin Sodium (Coumadin) 7.5 mg 1X WARF ONCE PO Last administered on 07/15/19at 16:11; Start 07/15/19 at 16:00; Stop 07/15/19 at 16:01; Status DC Warfarin Sodium (Coumadin) 5 mg 1X WARF ONCE PO Last administered on 07/16/19at 19:00; Start 07/16/19 at 16:00; Stop 07/16/19 at 16:01; Status DC Ondansetron HCl (Zofran) 4 mg PRN Q6HRS PRN IVP NAUSEA/VOMITING; Start 07/16/19 at 20:15 Acetaminophen (Tylenol) 500 mg PRN Q6HRS PRN PO MILD PAIN / TEMP; Start 07/16/19 at 20:15 Acetaminophen/ Codeine Phosphate (Tylenol #3) 1 tab PRN Q6HRS PRN PO MODERATE PAIN; Start 07/16/19 at 20:15 Temazepam (Restoril) 7.5 mg PRN QHS PRN PO INSOMNIA; Start 07/16/19 at 20:15 Active Scripts Active Reported Metoprolol Tartrate 25 Mg Tablet 25 Mg PO DAILY Coumadin (Warfarin Sodium) 4 Mg Tablet 4 Mg PO 4X WEEK M,W,F,RIBEIRO Pantoprazole Sodium (Pantoprazole Sodium) 40 Mg Tablet.dr 40 Mg PO DAILYAC Hydrocodone-Apap 5-325 (Hydrocodone Bit/Acetaminophen) 1 Tab Tablet 1 Tab PO PRN Q6HRS PRN Finasteride 5 Mg Tablet 5 Mg PO DAILY Losartan Potassium 50 Mg Tablet 50 Mg PO DAILY Amlodipine Besylate 5 Mg Tablet 5 Mg PO DAILY Coumadin (Warfarin Sodium) 5 Mg Tablet 5 Mg PO 4X/WEEK take , , SAT NITROGLYCERIN SubLingual (Nitroglycerin) 0.4 Mg Tab.subl 0.4 Mg SL PRN Q5MIN PRN Aspir 81 (Aspirin) 81 Mg Tablet.dr 81 Mg PO DAILY Flomax (Tamsulosin Hcl) 0.4 Mg Cap.er.24h 0.4 Mg PO BID Vitals/I & O Vital Sign - Last 24 Hours 07/16/19 07/16/19 07/16/19 07/16/19 08:52 08:52 08:52 10:52 Temp 97.9 97.9 Pulse 67 67 67 75 Resp 18 B/P (MAP) 146/79 146/79 146/79 111/61 (78) Pulse Ox 95 O2 Delivery Room Air 07/16/19 07/16/19 07/16/19 07/16/19 14:46 19:13 20:05 23:58 Temp 98.2 98.4 98.2 98.2 98.4 98.2 Pulse 76 82 68 Resp 17 18 18 B/P (MAP) 114/57 (76) 122/48 (72) 122/65 (84) Pulse Ox 97 97 97 O2 Delivery Room Air Room Air Room Air Room Air 07/17/19 07/17/19 03:36 07:59 Temp 98.6 99.7 98.6 99.7 Pulse 71 73 Resp 18 16 B/P (MAP) 125/67 (86) 144/83 (103) Pulse Ox 97 96 O2 Delivery Room Air Room Air Intake and Output 07/16/19 07/16/19 07/17/19 14:59 22:59 06:59 Intake Total 800 ml 0 ml Balance 800 ml 0 ml LOIDA KEENAN MD Jul 17, 2019 08:36
[2019-07-17] MEDS: LOSARTAN POTASSIUM 50 MG TABLET. PO SCH (09:27)
[2019-07-17] MEDS: ASPIRIN ENTERIC COATED 81 MG TABLET.DR. PO SCH (09:27)
[2019-07-17] MEDS: PANTOPRAZOLE 40 MG TABLET.DR. PO SCH (09:27)
[2019-07-17] MEDS: TAMSULOSIN 0.4 MG CAP.ER.24H. PO SCH (09:27)
[2019-07-17] MEDS: amLODIPine BESYLATE 5 MG TABLET PO SCH (09:28)
[2019-07-17] MEDS: METOPROLOL TART IMMED RELEASE 25 MG TABLET. PO SCH (09:28)
--- NOTE | 2019-07-17 10:15 | NUR ---
Pharmacy Warfarin Dosing Note S: Pharmacy consulted to assist with anticoagulation therapy started O: JV SHEPARD is a 68 year old M with Atrial Fibrillation LABS: Last INR: 1.4 Last HGB: 8.9 Last HCT: 26.3 Last PLT: 179 Last dose of 5 mg given on 07/16/19 at 1900 A:INR of 1.4 is below desired range. Target range for this patient is: 2 -3 P: Warfarin dose: 5 mg Today at 1600 Bridge Therapy: None Next INR due 07/18/19 AM Pharmacy anticoagulation service will continue to follow. MELLY KRUEGER [facility], 07/17/19 1010
[2019-07-17 11:38] VITALS: BP 125/74
--- NOTE | 2019-07-17 13:09 | PDOC ---
JUDITH PEREZ LAND LEVELER 07/17/19 1309: CARDIO Progress Notes Date and Time Date of Service 07/17/19 Time of Evaluation 1300 Subjective Subjective: No Chest Pain, No shortness of breath, No Palpitations Vitals Vitals Vital Signs Date Time Temp Pulse Resp B/P (MAP) Pulse Ox O2 Delivery O2 Flow Rate FiO2 07/17/19 11:38 99.0 68 16 125/74 (91) 97 Room Air 99.0 Weight Weight [ ] Input and Output Intake and Output Intake and Output 07/17/19 07:00 Intake Total 800 ml Balance 800 ml Intake Oral 800 ml # Voids 5 Laboratory Labs Laboratory Tests Test 07/16/19 16:25 07/17/19 05:40 Prothrombin Time 15.5 SEC (11.7-14.0) 17.3 SEC (11.7-14.0) Prothromb Time International Ratio 1.3 (0.8-1.1) 1.4 (0.8-1.1) White Blood Count 7.1 x10^3/uL (4.0-11.0) Red Blood Count 3.04 x10^6/uL (4.30-5.70) Hemoglobin 8.9 g/dL (13.0-17.5) Hematocrit 26.3 % (39.0-53.0) Mean Corpuscular Volume 87 fL (79-100) Mean Corpuscular Hemoglobin 29 pg (25-35) Mean Corpuscular Hemoglobin Concent 34 g/dL (31-37) Red Cell Distribution Width 16.1 % (11.5-14.5) Platelet Count 179 x10^3/uL (140-400) Neutrophils (%) (Auto) 68 % (31-73) Lymphocytes (%) (Auto) 25 % (24-48) Monocytes (%) (Auto) 5 % (0-9) Eosinophils (%) (Auto) 1 % (0-3) Basophils (%) (Auto) 0 % (0-3) Neutrophils # (Auto) 4.9 x10^3/uL (1.8-7.7) Lymphocytes # (Auto) 1.8 x10^3/uL (1.0-4.8) Monocytes # (Auto) 0.4 x10^3/uL (0.0-1.1) Eosinophils # (Auto) 0.1 x10^3/uL (0.0-0.7) Basophils # (Auto) 0.0 x10^3/uL (0.0-0.2) Sodium Level 144 mmol/L (136-145) Potassium Level 4.0 mmol/L (3.5-5.1) Chloride Level 109 mmol/L (98-107) Carbon Dioxide Level 28 mmol/L (21-32) Anion Gap 7 (6-14) Blood Urea Nitrogen 18 mg/dL (8-26) Creatinine 1.0 mg/dL (0.7-1.3) Estimated GFR (Cockcroft-Gault) 73.9 BUN/Creatinine Ratio 18 (6-20) Glucose Level 99 mg/dL (70-99) Calcium Level 8.1 mg/dL (8.5-10.1) Total Bilirubin 0.3 mg/dL (0.2-1.0) Aspartate Amino Transf (AST/SGOT) 11 U/L (15-37) Alanine Aminotransferase (ALT/SGPT) 30 U/L (16-63) Alkaline Phosphatase 48 U/L (46-116) Total Protein 5.3 g/dL (6.4-8.2) Albumin 2.6 g/dL (3.4-5.0) Albumin/Globulin Ratio 1.0 (1.0-1.7) Physical Exam HEENT: Neck Supple W Full Motion Chest: Symmetric, Other (left chest device insertion site soft, clean, and dry. Incision well-approximated. No erythema, hematoma, or ecchymosis present.) LUNGS: Clear to Auscultation Heart: S1S2, irregularly irregular (AFIB with controlled rate) Abdomen: Soft N/T Extremities: No Edema Neurology: alert, oriented, follow commands Assessment Assessment 1. Acute on chronic systolic CHF. Swelling improved with diuresis. 2. ICM; s/p AICD 3. CAD; recent cardiac cath showed PROGRAM MANAGER TRANSPORTATION of the RCA with [id number] collaterals 4. Permanent AFIB; OAC with warfarin. INR 1.4 5. Hypertension; controlled 6. Hyperlipidemia ; statin Recommendations Low-dose oral Lasix therapy Continue secondary prevention Metoprolol for rate control Warfarin for stroke prevention Supportive care F/u in our office with Dr. Banks in 1 month. CHRISTY BANKS MD 07/17/19 2014: CARDIO Progress Notes Assessment Assessment Patient seen and examined. Agree with SHEET PILE DRIVER OPERATOR's assessment and plan. Ac on chr systolic HF better compensated CAD clinically stable Perm atrial fib rate controlled Follow up in one month JUDITH PEREZ APRN Jul 17, 2019 13:09 CHRISTY BANKS MD Jul 17, 2019 20:14
[2019-07-17] MEDS ORDERED: POTA10TA12 PO (13:38)
[2019-07-17] MEDS ORDERED: FURO20TA3 PO (13:38)
[2019-07-17 15:38] VITALS: BP 132/70
[2019-07-17] MEDS ORDERED: WARFARIN 5 MG TABLET. PO ONE (16:00)
--- NOTE | 2019-07-17 16:13 | NUR ---
Discharge instructions given to patient and family regarding medications and follow up appointments. Appointment date and contact information given to patient and family. Education over chest pain, atrial fib, and stroke addressed. Pt and family verbalizes understanding.
--- NOTE | 2019-07-17 21:18 | PDOC3 ---
Discharge Summary Visit Information Date of Admission: Jul 14, 2019 Date of Discharge: Jul 17, 2019 Admitting Diagnosis: Acute CHF exacerbationio Final Diagnosis Problems Medical Problems: (1) Acute exacerbation of CHF (congestive heart failure) Status: Acute (2) Chest pain Status: Acute Brief Hospital Course Allergies Allergies Coded Allergies Type Severity Reaction Last Updated Verified No Known Drug Allergies 05/26/17 No Vital Signs Vital Signs Date Time Temp Pulse Resp B/P (MAP) Pulse Ox O2 Delivery O2 Flow Rate FiO2 07/17/19 15:38 99.2 70 16 132/70 (90) 98 Room Air 99.2 Lab Results Laboratory Tests Test 07/16/19 04:00 07/16/19 16:25 07/17/19 05:40 Sodium Level 140 mmol/L (136-145) 144 mmol/L (136-145) Potassium Level 4.3 mmol/L (3.5-5.1) 4.0 mmol/L (3.5-5.1) Chloride Level 105 mmol/L (98-107) 109 mmol/L (98-107) Carbon Dioxide Level 27 mmol/L (21-32) 28 mmol/L (21-32) Anion Gap 8 (6-14) 7 (6-14) Blood Urea Nitrogen 27 mg/dL (8-26) 18 mg/dL (8-26) Creatinine 1.2 mg/dL (0.7-1.3) 1.0 mg/dL (0.7-1.3) Estimated GFR (Cockcroft-Gault) 59.9 73.9 Glucose Level 146 mg/dL (70-99) 99 mg/dL (70-99) Calcium Level 8.2 mg/dL (8.5-10.1) 8.1 mg/dL (8.5-10.1) Prothrombin Time 15.5 SEC (11.7-14.0) 17.3 SEC (11.7-14.0) Prothromb Time International Ratio 1.3 (0.8-1.1) 1.4 (0.8-1.1) White Blood Count 7.1 x10^3/uL (4.0-11.0) Red Blood Count 3.04 x10^6/uL (4.30-5.70) Hemoglobin 8.9 g/dL (13.0-17.5) Hematocrit 26.3 % (39.0-53.0) Mean Corpuscular Volume 87 fL (79-100) Mean Corpuscular Hemoglobin 29 pg (25-35) Mean Corpuscular Hemoglobin Concent 34 g/dL (31-37) Red Cell Distribution Width 16.1 % (11.5-14.5) Platelet Count 179 x10^3/uL (140-400) Neutrophils (%) (Auto) 68 % (31-73) Lymphocytes (%) (Auto) 25 % (24-48) Monocytes (%) (Auto) 5 % (0-9) Eosinophils (%) (Auto) 1 % (0-3) Basophils (%) (Auto) 0 % (0-3) Neutrophils # (Auto) 4.9 x10^3/uL (1.8-7.7) Lymphocytes # (Auto) 1.8 x10^3/uL (1.0-4.8) Monocytes # (Auto) 0.4 x10^3/uL (0.0-1.1) Eosinophils # (Auto) 0.1 x10^3/uL (0.0-0.7) Basophils # (Auto) 0.0 x10^3/uL (0.0-0.2) BUN/Creatinine Ratio 18 (6-20) Total Bilirubin 0.3 mg/dL (0.2-1.0) Aspartate Amino Transf (AST/SGOT) 11 U/L (15-37) Alanine Aminotransferase (ALT/SGPT) 30 U/L (16-63) Alkaline Phosphatase 48 U/L (46-116) Total Protein 5.3 g/dL (6.4-8.2) Albumin 2.6 g/dL (3.4-5.0) Albumin/Globulin Ratio 1.0 (1.0-1.7) Laboratory Tests Test 07/17/19 05:40 White Blood Count 7.1 x10^3/uL (4.0-11.0) Red Blood Count 3.04 x10^6/uL (4.30-5.70) Hemoglobin 8.9 g/dL (13.0-17.5) Hematocrit 26.3 % (39.0-53.0) Mean Corpuscular Volume 87 fL (79-100) Mean Corpuscular Hemoglobin 29 pg (25-35) Mean Corpuscular Hemoglobin Concent 34 g/dL (31-37) Red Cell Distribution Width 16.1 % (11.5-14.5) Platelet Count 179 x10^3/uL (140-400) Neutrophils (%) (Auto) 68 % (31-73) Lymphocytes (%) (Auto) 25 % (24-48) Monocytes (%) (Auto) 5 % (0-9) Eosinophils (%) (Auto) 1 % (0-3) Basophils (%) (Auto) 0 % (0-3) Neutrophils # (Auto) 4.9 x10^3/uL (1.8-7.7) Lymphocytes # (Auto) 1.8 x10^3/uL (1.0-4.8) Monocytes # (Auto) 0.4 x10^3/uL (0.0-1.1) Eosinophils # (Auto) 0.1 x10^3/uL (0.0-0.7) Basophils # (Auto) 0.0 x10^3/uL (0.0-0.2) Prothrombin Time 17.3 SEC (11.7-14.0) Prothromb Time International Ratio 1.4 (0.8-1.1) Sodium Level 144 mmol/L (136-145) Potassium Level 4.0 mmol/L (3.5-5.1) Chloride Level 109 mmol/L (98-107) Carbon Dioxide Level 28 mmol/L (21-32) Anion Gap 7 (6-14) Blood Urea Nitrogen 18 mg/dL (8-26) Creatinine 1.0 mg/dL (0.7-1.3) Estimated GFR (Cockcroft-Gault) 73.9 BUN/Creatinine Ratio 18 (6-20) Glucose Level 99 mg/dL (70-99) Calcium Level 8.1 mg/dL (8.5-10.1) Total Bilirubin 0.3 mg/dL (0.2-1.0) Aspartate Amino Transf (AST/SGOT) 11 U/L (15-37) Alanine Aminotransferase (ALT/SGPT) 30 U/L (16-63) Alkaline Phosphatase 48 U/L (46-116) Total Protein 5.3 g/dL (6.4-8.2) Albumin 2.6 g/dL (3.4-5.0) Albumin/Globulin Ratio 1.0 (1.0-1.7) Brief Hospital Course Mr Briggs is a 68-year-old male w/ PMHx BPH, HTN, chronic systolic CHF with recent AICD placement who has been getting slowly short of breath and had increased lower extremity swelling. Admitted for acute CHF, diuresed and consult ed Cardiology. Improved shortness of breath and swelling after second dosing of IV lasix. He denies any chest pain or GI complaints. Will d/c on oral lasix and potassium and f/u in 1-2 weeks with cardiology. ASSESSMENT [place]-uz-[id number] systolic and diastolic heart failure recent echo Ejection Fraction is 35-40%. Mild mitral regurgitation. Trace tricuspid regurgitation. The PA pressure was estimated at 26 mmHg. recent defibrillator placed. upgrade of his permanent pacemaker to a [employer] AICD for the primary prevention of cardiac sudden due to his severe cardiomyopathy. Very low probability for pulmonary embolic disease. on v/q 07/14 07/16 some ruq discomfort - had US abdomen showing fatty liver Greater than 30 minutes spent on d/c Discharge Information Condition at Discharge: Improved Follow Up: Weeks (1) Disposition/Orders: D/C to Home Scheduled Amlodipine Besylate (Amlodipine Besylate) 5 Mg Tablet, 5 MG PO DAILY for htn, (Reported) Entered as Reported by: CRISTHIAN SOW on 11/25/18 0812 Last Action: Continued on 07/14/192037 by DANIEL DUARTE Aspirin (Aspir 81) 81 Mg Tablet.dr, 81 MG PO DAILY for prevention, #30 Ref 5 (Reported) Entered as Reported by: ARTEMIO FRITZ on 05/26/175 Last Action: Continued on 07/14/192037 by DANIEL DUARTE Finasteride (Finasteride) 5 Mg Tablet, 5 MG PO DAILY for urinary retention, #30 Ref 11 (Reported) Entered as Reported by: BEBO SPANGLER on 07/07/19 1154 Last Action: Edited on 07/14/192037 by DANIEL DUARTE Furosemide (Furosemide) 20 Mg Tablet, 20 MG PO DAILY for CHF for 30 Days, #30 Prescribed by: LOIDA KEENAN MD on 07/17/19 1338 Losartan Potassium (Losartan Potassium) 50 Mg Tablet, 50 MG PO DAILY for HYPERTENSION, (Reported) Entered as Reported by: CRISTHIAN SOW on 11/25/18 0812 Last Action: Continued on 07/14/192037 by DANIEL DUARTE Metoprolol Tartrate (Metoprolol Tartrate) 25 Mg Tablet, 25 MG PO DAILY for FOR HYPERTENSION, #60 Ref 0 (Reported) Entered as Reported by: DANIEL DUARTE on 07/14/192012 Last Action: Continued on 07/14/192037 by DANIEL DUARTE Pantoprazole Sodium (Pantoprazole Sodium ) 40 Mg Tablet.dr, 40 MG PO DAILYAC for GERD, (Reported) Entered as Reported by: BEBO SPANGLER on 07/07/19 115 Last Action: Continued on 07/14/192037 by DANIEL DUARTE Potassium Chloride (Klor-Con 10) 10 Meq Tablet.er, 10 MEQ PO DAILYWBKFT for CHF for 30 Days, #30 Prescribed by: LOIDA KEENAN MD on 07/17/19 1338 Tamsulosin Hcl (Flomax) 0.4 Mg Cap.er.24h, 0.4 MG PO BID, (Reported) Entered as Reported by: ARTEMIO FRITZ on 05/26/17 2141 Last Action: Continued on 07/14/192037 by DANIEL DUARTE Warfarin Sodium (Coumadin) 5 Mg Tablet, 5 MG PO 4X/WEEK for bl. thinner, #30 (Reported) take , , SAT Entered as Reported by: CRISTHIAN SOW on 11/25/18 0812 Last Action: Reviewed on 07/14/192012 by DANIEL DUARTE Warfarin Sodium (Coumadin) 4 Mg Tablet, 4 MG PO 4X WEEK M,W,F,RIBEIRO for AFIB BLOOD THINNER, (Reported) Entered as Reported by: GINA STALEY on 07/08/19 1212 Last Action: Reviewed on 07/14/192012 by DANIEL DUARTE Scheduled PRN Hydrocodone Bit/Acetaminophen (Hydrocodone-Apap 5-325 ) 1 Tab Tablet, 1 TAB PO PRN Q6HRS PRN for PAIN, Ref 0 (Reported) Entered as Reported by: BEBO SPANGLER on 07/07/19 1154 Last Action: Continued on 07/14/192037 by DANIEL DUARTE Nitroglycerin (NITROGLYCERIN SubLingual) 0.4 Mg Tab.subl, 0.4 MG SL PRN Q5MIN PRN for CHEST PAIN, (Reported) Entered as Reported by: ARTEMIO FRITZ on 05/26/172144 Last Action: Continued on 07/14/192037 by LOIDA DIAZ MD Jul 17, 2019 21:18
[2019-07-18] MEDS ORDERED: POTASSIUM CHLORIDE 10 MEQ TABLET.ER. PO SCH (08:00)
[2019-07-18] MEDS ORDERED: FUROSEMIDE 20 MG TABLET PO SCH (09:00)
== END 2019-07-17 16:05 | disposition home or self-care (01) | DRG 292 ==
LOC: ER 11:52 → 6 SOUTH 15:54
PROVIDERS: ADMIT Internal Medicine; ATTEND Internal Medicine
DX: I11.0 Hypertensive heart disease with heart failure (principal); I48.21 Permanent atrial fibrillation; I50.43 Acute on chronic combined systolic (congestive) and diastolic (congestive) heart failure; K76.0 Fatty (change of) liver, not elsewhere classified; I34.0 Nonrheumatic mitral (valve) insufficiency; E78.5 Hyperlipidemia, unspecified; I25.10 Atherosclerotic heart disease of native coronary artery without angina pectoris; I42.8 Other cardiomyopathies; I25.5 Ischemic cardiomyopathy; I07.1 Rheumatic tricuspid insufficiency; N40.0 Benign prostatic hyperplasia without lower urinary tract symptoms; Z79.01 Long term (current) use of anticoagulants; Z83.3 Family history of diabetes mellitus; Z95.810 Presence of automatic (implantable) cardiac defibrillator
CPT/HCPCS: 36415; 71046; 76700; 78582; 80048; 80053; 82553; 83735; 83880; 84484; 85007; 85025; 85379; 85610; 85730; 90471; 90686; 93005; 93971; 96374; A9540; A9558; J1940; 99285-25; G0378

== ENCOUNTER → 2021-07-14 | Day surgery (SDC) | payer MEDICARE, MEDICAID ==
[~2021-07-14] MED LIST changes: +AMLO-186 PO; -AMLO5TAB10 PO; +APIX5TAB PO; -CIPR500T PO; +CIPR500T2 PO; +FURO20TA3 PO; +IV RINGERS,LACTATED 1000ML 1,000 ML IV SCH; +LIDOCAINE 2% PF 5 ML VIAL. ONE; -LISI-334 PO; +LISI10TA16 PO; -LISI10TA2 PO; +LISI20TA18 PO; +METO25TA4 PO; +POTA10TA12 PO; +PROPOFOL 10 MG/ML (20ML) VIAL. IV ONE; -WARF-78 PO; +WARF5TAB2 PO
[2021-07-14 13:15] VITALS: BP 160/77
--- NOTE | 2021-07-14 14:31 | PDOC4 ---
PROCEDURE Procedure Colonoscopy/EGD/dilation Indication: dysphagia/history of colon cancer. Meds: per anesthesia Findings: SHERRY: normal. --'Scope advanced to ileocolostomy in proximal transverse colon. Prep adequate. Mucosa normal. Few diverticula seen in the sigmoid. No polyps, etc. IH's on retroflex. E--Healed reflux at 44cm, no stricture. Dilated with 52F Hawk. G--normal D--normal to second portion. Magdiel. well. IMP: No recurrent colon cancer. Diverticulosis Internal hemorrhoids. GERD/empirically dilated. REC: Resume meds, diet as before. F/u in 2 weeks re: response to dilation. Repeat colonoscopy in 5 years. PARISH VINCENT MD Jul 14, 2021 14:31
[2021-07-14 14:46] VITALS: BP 150/86
== END | disposition home or self-care (01) ==
LOC: ENDOS 12:42
PROVIDERS: ATTEND Internal Medicine Gastroenterology
DX: Z08 Encounter for follow-up examination after completed treatment for malignant neoplasm (principal); K92.2 Gastrointestinal hemorrhage, unspecified; R13.10 Dysphagia, unspecified; K64.0 First degree hemorrhoids; K57.30 Diverticulosis of large intestine without perforation or abscess without bleeding; K63.89 Other specified diseases of intestine; K31.89 Other diseases of stomach and duodenum; K21.00 Gastro-esophageal reflux disease with esophagitis, without bleeding; I10 Essential (primary) hypertension; I48.91 Unspecified atrial fibrillation; E78.00 Pure hypercholesterolemia, unspecified; E66.9 Obesity, unspecified; M19.90 Unspecified osteoarthritis, unspecified site; Z85.038 Personal history of other malignant neoplasm of large intestine; Z98.0 Intestinal bypass and anastomosis status; Z79.82 Long term (current) use of aspirin; Z79.899 Other long term (current) drug therapy; Z98.890 Other specified postprocedural states
CPT/HCPCS: 43235; 43450; 45378; J2704